=== PATIENT | female | born 1985 | race Hispanic/Latino ===

== ENCOUNTER 2023-01-31 12:48 | Emergency (ER) | payer OTHER ==
--- OUTSIDE RECORDS SUMMARY | 2023-01-31 12:56 | XMS REPORT | Continuity of Care Document ---
:1985 Author Organization [facility] t Address [address] [place] [address] Care Team Providers Name Role Phone PCP, PATIENT DOES NOT HAVE A Primary Care Physician Unavaila STARLA Guardado Attending Clinician Unavailable BOSTON PATRICIA Attending Clinician Unavailable RADHA Attending Clinician Unavailable JUANY FUENTES Attending Clinician Unavailable Juany Retana S Attending Clinician Doctor Unassigned, [place] Attending Clinician Unavailable Starla Hernandez MD Attending Clinician 2, [facility] Attending Clinician Unavailable Romina Morgan RN Attending Clinician Unavailable INES PENA Attending Clinician Unavailable Ines Pena MD Attending Clinician Unknown, Attending Attending Clinician Unavailable Chetan MANCIA Attending Clinician Unavailable Chetan Mensah Attending Clinician [place] Patricia MD Attending Clinician Madiha Bradshaw RN Attending Clinician Unavailable Monroe Molina CRNA Attending Clinician Abdelrahman Huang MD Attending Clinician Room, [facility] Attending Clinician Unavailable KELSY GARCIA Attending Clinician Unavailable Kelsy Garcia MD Attending Clinician PETER WILD Attending Clinician Unavailable Peter Wild PA-C Attending Clinician CORWIN NUÑEZ Attending Clinician Unavailable Ultrasound, [facility] Attending Clinician Unavailable Eden Wolfe MD Attending Clinician [phone] EDEN WOLFE Attending Clinician Unavailable Corwin Nuñez MD Attending Clinician Suni Kowalski MD Attending Clinician SUNI KOWALSKI Attending Clinician Unavailable BELINDA MOREAU Attending Clinician Unavailable Belinda Palmer Attending Clinician SRIDHAR RABAGO Attending Clinician Unavailable SRIDHAR RABAGO Attending Clinician Unavailable 5, [facility] Room Attending Clinician Unavailable Sridhar Rabago MD Attending Clinician Nurse, [facility] Attending Clinician Unavailable 2, [facility] Room Attending Clinician Unavailable Olvin Corral MD Attending Clinician [phone] OLVIN CORRAL Attending Clinician Unavailable 3, [facility] Room Attending Clinician Unavailable Pob, [facility] Lab Main Attending Clinician Unavailable José Miguel Tobias DO Attending Clinician [place] García Attending Clinician Dave Tobias MD Attending Clinician OMARI MYLES Attending Clinician Unavailable OMARI MYLES Attending Clinician Unavailable STARLA HERNANDEZ Admitting Clinician Unavailable BOSTON PATRICIA Admitting Clinician Unavailable SUNI KOWALSKI Admitting Clinician Unavailable DAVE TOBIAS Admitting Clinician Unavailable RADHA Admitting Clinician Unavailable Starla Hernandez MD Admitting Clinician Chetan MANICA Admitting Clinician Unavailable [place] Patricia MD Admitting Clinician KELSY GARCIA Admitting Clinician Unavailable Kelsy Garcia MD Admitting Clinician Suni Kowalski MD Admitting Clinician Anthony BONE, Dave Coronel Admitting Clinician Payers Payer Name Policy Type Policy Number Effective Date Expiration Date Madina jeffery [facility] [id number] 2019 00:00:00 UMR [id number] 2014 00:00:00 MEDICAID [facility] [id number] 2019 00:00:00 Problems Condition Condition Condition Status Onset Resolution Last Treating Co mments Source Name Details Category Date Date Treatment Clinician Date De De Disease Active 2021-06 Overview: Univer s Quervain's Quervain's 07-16 Formattin ity of tenosynovi tenosynovi 00:00: g of this [place] tis, left tis, left 00 note Medi evelyn might be Branch different from the original. 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 U nivers ou smear ou smear 0-19 ity of of cervix [place] 00 Medical atypical atypical Branch squamous squamous cells cells cannot cannot exclude exclude high grade high grade squamous squamous intraepith intraepith elial elial lesion lesion (ASC-H) (ASC-H) History of History of Disease Active U nivers anxiety anxiety 3-03 ity of 00:00: [place] 00 Medical Branch History of History of Disease Active 2019- U nivers depression depression 3-03 it y of 00:00: [place] 00 Medical Branch Mild Mild Disease Active Univers intermitte intermitte 3-03 it y of nt asthma nt asthma 00:[place] without without 00 Medical complicati complicati Br anch on on Obesity Obesity Disease Active 2018-06 Univers (BMI (BMI 1-06 ity of 30-39.9) 30-39.9) 00:00: [place] [id number] Medical [place] Allergies, Adverse Reactions, Alerts Allergy Allergy Status Severity Reaction(s) Onset Inactive Treating Comm ents Source Name Type Date Date Clinician NO KNOWN Drug Active Univers ALLERGIE Class ity of S [facility] Social History Social Habit Start Date Stop Date Quantity Comments Source History SDOH University o f [facility] [place] History SDOH University o f Alcohol Std [place] Medical Drinks Branch History [facility] University o f Alcohol Binge [facility] al Branch Exposure to 2022-12-13 2022-12-23 Not sure [facility]-CoV-2 00:00:00 13:11:00 [facility] (event) [place] Alcohol intake 2022-12-23 2022-12-23 Current drinker of Un iversity of 00:00:00 00:00:00 alcohol (finding) [facility] Tobacco use and 2022-01-24 2022-01-24 Smokeless tobacco Un iversity of exposure 00:00:00 00:00:00 non-user [facility] Alcohol Comment 2018-05-25 2018-05-25 Occasionally Univers ity of 00:00:00 00:00:00 [facility] Sex [birth year] Universit y of 00:00:00 00:00:00 [facility] Smoking Status Start Date Stop Date Source Never smoked tobacco [facility] Medications Ordered Filled Start Stop Current Ordering Indication Dosage Frequency Signature Comments Components Source Medication Medication Date Date Medication? Clinician (SIG) Name Name acetaminoph Yes 4647 1{tbl} Take 1 Un karen en-codeine 6-13 tablet by ity of (TYLENOL-CO 00:00: mouth [place] DEINE #3) 00 every 4 Medical 300-30 mg (four) Branch tablet hours as needed for Pain (scale 4-6) or Pain (scale 7-10). Indication s: acute pain acetaminoph Yes 4647 1{tbl} Take 1 Un karen en-codeine 6-13 tablet by ity of (TYLENOL-CO 00:00: mouth [place] DEINE #3) 00 every 4 Medical 300-30 mg (four) Branch tablet hours as needed for Pain (scale 4-6) or Pain (scale 7-10). Indication s: acute pain acetaminoph 2023-0 Yes 4647 1{tbl} Take 1 Un karen en-codeine 6-13 tablet by ity of (TYLENOL-CO 00:00: mouth [place] DEINE #3) 00 every 4 Medical 300-30 mg (four) Branch tablet hours as needed for Pain (scale 4-6) or Pain (scale 7-10). Indication s: acute pain acetaminoph 2023-0 Yes 4647 1{tbl} Take 1 Un karen en-codeine 6-13 tablet by ity of (TYLENOL-CO 00:00: mouth [place] DEINE #3) 00 every 4 Medical 300-30 mg (four) Branch tablet hours as needed for Pain (scale 4-6) or Pain (scale 7-10). Indication s: acute pain acetaminoph 2023-0 Yes 4647 1{tbl} Take 1 Un karen en-codeine 6-13 tablet by ity of (TYLENOL-CO 00:00: mouth [place] DEINE #3) 00 every 4 Medical 300-30 mg (four) Branch tablet hours as needed for Pain (scale 4-6) or Pain (scale 7-10). Indication s: acute pain acetaminoph 2023-0 Yes 4647 1{tbl} Take 1 Un karen en-codeine 6-13 tablet by ity of (TYLENOL-CO 00:00: mouth [place] DEINE #3) 00 every 4 Medical 300-30 mg (four) Branch tablet hours as needed for Pain (scale 4-6) or Pain (scale 7-10). Indication s: acute pain morpHINE (4 2022-0 Yes 2mg 2 mg, Slow Univers mg/mL) 6-12 IV Push, ity of injection 2 16:03: Q5MIN PRN, [place] mg 06 5 doses, Medical Starting Branch on Fri12/09/22 at 1103, Until Discontinu ed, Routine, Pain (scale 4-6), PACU ondansetron 2023-0 Yes 4mg 4 mg, Slow Univers (ZOFRAN 6-12 IV Push, ity of (PF)) 16:03: PRN, 1 [place] injection 4 06 dose, Medical mg Starting Branch on Fri12/09/22 at 1103, Until Discontinu ed, Routine, Nausea and Vomiting (N/V), PACU morpHINE (4 2022- No 2mg 2 mg, Slow Univers mg/mL) 12-09 IV Push, ity of injection 2 16:03: 19:40 Q5MIN PRN, [place] mg 06 :29 5 doses, Medical Starting Branch on Fri12/09/22 at 1103, Until Fri12/09/22 at 1440, Routine, Pain (scale 4-6), PACU ondansetron 2022- No 4mg 4 mg, Slow Univers (ZOFRAN 12-09 IV Push, ity of (PF)) 16:03: 19:40 PRN, 1 [place] injection 4 06 :29 dose, Medical mg Starting Branch on Fri12/09/22 at 1103, Until Fri12/09/22 at 1440, Routine, Nausea and Vomiting (N/V), PACU bupivacaine 2022-0 Yes PRN, Univer s (preserv 12-09 Starting ity of free) 15:49: on Fri [place] (SENSORCAIN 00 12/09/22 at Dc dical E F) 0.25 1049, Branch % (2.5 Until mg/mL) Discontinu injection ed, Routine, Intra-op bupivacaine 2022-2022- No PRN, Unive rs (preserv 12-09 Starting ity of free) 15:49: 19:40 on Fri [place] (SENSORCAIN 00 :29 12/09/22 at Dc dical E MP) 0.25 1049, Branch % (2.5 Until Mon mg/mL) 12/09/22 at injection 1440, Routine, Intra-op sodium 2022-0 Yes PRN, Univers chloride 12-09 Starting ity of 0.9 % 15:38: on Fri [place] irrigation 00 12/09/22 at [facility] ical solution 1038, Branch Until Discontinu ed, Intra-op sodium 2022-0 202- No PRN, Univers chloride 12-09 Starting ity of 0.9 % 15:38: 19:40 on [facility] irrigation 00 :29 12/09/22 at Med ical solution 1038, Branch Until Fri12/09/22 at 1440, Intra-op lactated 2022-2022- No 1000mL at 42 Unive rs ringers IV 12-09 06-12 mL/hr, ity of infusion 15:00: 14:50 1,000 mL, [place] 1,000 mL 00 :00 IV Medical Infusion, Branch ONCE, 1 dose, On Fri12/09/22 at 1000, Routine, DSU Pre-op lactated 2022-0 2022- No 1000mL at 42 Unive rs ringers IV 6 06-12 mL/hr, ity of infusion 15:00: 14:50 1,000 mL, [place] 1,000 mL 00 :00 IV Medical Infusion, Branch ONCE, 1 dose, On Fri12/09/22 at 1000, Routine, DSU Pre-op aspirin 325 2022- Yes [id number] 325mg Take 1 Univers mg tablet 12-09 [id number] tablet by it y of 00:00: 04:59 mouth in [place] 00 :00 [facility] and 1 tablet in the evening. Take with meals. Do all this for 28 days. aspirin 325 2022- Yes [id number] 325mg Take 1 Univers mg tablet 12-09 [id number] tablet by it y of 00:00: 04:59 mouth in [place] 00 :00 [facility] and 1 tablet in the evening. Take with meals. Do all this for 28 days. aspirin 325 2022- Yes [id number] 325mg Take 1 Univers mg tablet 12-09 [id number] tablet by it y of 00:00: 04:59 mouth in [place] 00 :00 [facility] and 1 tablet in the evening. Take with meals. Do all this for 28 days. aspirin 325 2022- Yes [id number] 325mg Take 1 Univers mg tablet 12-09 [id number] tablet by it y of 00:00: 04:59 mouth in [place] 00 :00 [facility] and 1 tablet in the evening. Take with meals. Do all this for 28 days. aspirin 325 2022- Yes [id number] 325mg Take 1 Univers mg tablet 12-09 [id number] tablet by it y of 00:00: 04:59 mouth in [place] 00 :00 the Medical morning Branch and 1 tablet in the evening. Take with meals. Do all this for 28 days. aspirin 325 2022- Yes [id number] 325mg Take 1 Univers mg tablet 12-09 [id number] tablet by it y of 00:00: 04:59 mouth in [place] 00 :00 the Medical morning Branch and 1 tablet in the evening. Take with meals. Do all this for 28 days. aspirin 325 2022- Yes [id number] 325mg Take 1 Univers mg tablet 12-09 [id number] tablet by it y of 00:00: 04:59 mouth in [place] 00 :00 the Medical morning Branch and 1 tablet in the evening. Take with meals. Do all this for 28 days. aspirin 325 2022- Yes [id number] 325mg Take 1 Univers mg tablet 12-09 [id number] tablet by it y of 00:: :59 mouth in [place] 00 :00 the Medical morning Branch and 1 tablet in the evening. Take with meals. Do all this for 28 days. aspirin 325 2022- Yes [id number] 325mg Take 1 Univers mg tablet 12-09 [id number] tablet by it y of 00:00: :59 mouth in [place] 00 :00 the Medical morning Branch and 1 tablet in the evening. Take with meals. Do all this for 28 days. traMADoL 50 2022- Yes [id number] 50mg Take 1 Uni vers mg tablet 12-09-20 tablet by ity of 00:: :59 mouth [place] 00 :00 every 6 Medical (six) Branch hours as needed for Pain (scale 4-6) or Pain (scale 7-10) for up to 7 days. Indication s: acute pain traMADoL 50 2022-0 2022- Yes [id number] 50mg Take 1 Uni vers mg tablet 12-09-20 tablet by ity of 00:00: 04:59 mouth [place] 00 :00 every 6 Medical (six) Branch hours as needed for Pain (scale 4-6) or Pain (scale 7-10) for up to 7 days. Indication s: acute pain traMADoL 50 2022-2022- Yes [id number] 50mg Take 1 Uni vers mg tablet 12-09-20 tablet by ity of 00:00: 04:59 mouth [place] 00 :00 every 6 Medical (six) Branch hours as needed for Pain (scale 4-6) or Pain (scale 7-10) for up to 7 days. Indication s: acute pain traMADoL 50 2022-0 2022- Yes [id number] 50mg Take 1 Uni vers mg tablet 6-12 06-20 tablet by ity of 00:00: 04:59 mouth [place] 00 :00 every 6 Medical (six) Branch hours as needed for Pain (scale 4-6) or Pain (scale 7-10) for up to 7 days. Indication s: acute pain traMADoL 50 2022-0 2022- Yes [id number] 50mg Take 1 Uni vers mg tablet 6-12 06-20 tablet by ity of 00:00: 04:59 mouth [place] 00 :00 every 6 Medical (six) Branch hours as needed for Pain (scale 4-6) or Pain (scale 7-10) for up to 7 days. Indication s: acute pain traMADoL 50 2022-0 2022- No [id number] 50mg Take 1 Uni vers mg tablet 6-12 06-20 tablet by ity of 00:00: 04:59 mouth [place] 00 :00 every 6 Medical (six) Branch hours as needed for Pain (scale 4-6) or Pain (scale 7-10) for up to 7 days. Indication s: acute pain benzonatate 2022-0 Yes [id number] 200mg Take 2 Univers 100 mg 2-21 capsules ity of capsule 00:00: by mouth [place] 00 every 8 Medical (eight) Branch hours as needed for Cough. guaiFENesin 2022-0 Yes [id number] 400mg Take 1 Univers 400 mg 2-21 tablet by ity of tablet 00:00: mouth [place] 00 every 4 Medical (four) Branch hours as needed for Cough. albuterol 2022-0 Yes [id number] 2{puff} Inhale 2 Univers 90 2-21 Puffs ity of mcg/actuati 00:00: every 6 [place] on inhaler 00 (six) Medical hours as Branch needed for Shortness of Breath or Wheezing. ondansetron 2022-0 Yes [id number] 4mg Take 1 Univers 4 mg 2-21 tablet by ity of disintegrat 00:00: mouth [place] ing tablet 00 every 8 Medica l (eight) Branch hours as needed for Nausea and Vomiting (N/V). benzonatate 2023-0 Yes [id number] 200mg Take 2 Univers 100 mg 2-21 capsules ity of capsule 00:00: by mouth [place] 00 every 8 Medical (eight) Branch hours as needed for Cough. guaiFENesin 2023-0 Yes [id number] 400mg Take 1 Univers 400 mg 2-21 tablet by ity of tablet 00:00: mouth [place] 00 every 4 Medical (four) Branch hours as needed for Cough. albuterol 2023-0 Yes [id number] 2{puff} Inhale 2 Univers 90 2-21 Puffs ity of mcg/actuati 00:00: every 6 [place] on inhaler 00 (six) Medical hours as Branch needed for Shortness of Breath or Wheezing. ondansetron 2023-0 Yes [id number] 4mg Take 1 Univers 4 mg 2-21 tablet by ity of disintegrat 00:00: mouth [place] ing tablet 00 every 8 Medica l (eight) Branch hours as needed for Nausea and Vomiting (N/V). benzonatate 2023-0 Yes [id number] 200mg Take 2 Univers 100 mg 2-21 capsules ity of capsule 00:00: by mouth [place] 00 every 8 Medical (eight) Branch hours as needed for Cough. guaiFENesin 2023-0 Yes [id number] 400mg Take 1 Univers 400 mg 2-21 tablet by ity of tablet 00:00: mouth [place] 00 every 4 Medical (four) Branch hours as needed for Cough. albuterol 2023-0 Yes [id number] 2{puff} Inhale 2 Univers 90 2-21 Puffs ity of mcg/actuati 00:00: every 6 [place] on inhaler 00 (six) Medical hours as Branch needed for Shortness of Breath or Wheezing. ondansetron 2023-0 Yes [id number] 4mg Take 1 Univers 4 mg 2-21 tablet by ity of disintegrat 00:00: mouth [place] ing tablet 00 every 8 Medica l (eight) Branch hours as needed for Nausea and Vomiting (N/V). benzonatate 2023-0 Yes [id number] 200mg Take 2 Univers 100 mg 2-21 capsules ity of capsule 00:00: by mouth [place] 00 every 8 Medical (eight) Branch hours as needed for Cough. guaiFENesin 2023-0 Yes [id number] 400mg Take 1 Univers 400 mg 2-21 tablet by ity of tablet 00:00: mouth [place] 00 every 4 Medical (four) Branch hours as needed for Cough. albuterol 2023-0 Yes [id number] 2{puff} Inhale 2 Univers 90 2-21 Puffs ity of mcg/actuati 00:00: every 6 [place] on inhaler 00 (six) Medical hours as Branch needed for Shortness of Breath or Wheezing. ondansetron 2023-0 Yes [id number] 4mg Take 1 Univers 4 mg 2-21 tablet by ity of disintegrat 00:00: mouth [place] ing tablet 00 every 8 Medica l (eight) Branch hours as needed for Nausea and Vomiting (N/V). benzonatate 2023-0 Yes [id number] 200mg Take 2 Univers 100 mg 2-21 capsules ity of capsule 00:00: by mouth [place] 00 every 8 Medical (eight) Branch hours as needed for Cough. guaiFENesin 2023-0 Yes [id number] 400mg Take 1 Univers 400 mg 2-21 tablet by ity of tablet 00:00: mouth [place] 00 every 4 Medical (four) Branch hours as needed for Cough. albuterol 2023-0 Yes [id number] 2{puff} Inhale 2 Univers 90 2-21 Puffs ity of mcg/actuati 00:00: every 6 [place] on inhaler 00 (six) Medical hours as Branch needed for Shortness of Breath or Wheezing. ondansetron 2023-0 Yes [id number] 4mg Take 1 Univers 4 mg 2-21 tablet by ity of disintegrat 00:00: mouth [place] ing tablet 00 every 8 Medica l (eight) Branch hours as needed for Nausea and Vomiting (N/V). benzonatate 2023-0 Yes [id number] 200mg Take 2 Univers 100 mg 2-21 capsules ity of capsule 00:00: by mouth [place] 00 every 8 Medical (eight) Branch hours as needed for Cough. guaiFENesin 2023-0 Yes [id number] 400mg Take 1 Univers 400 mg 2-21 tablet by ity of tablet 00:00: mouth [place] 00 every 4 Medical (four) Branch hours as needed for Cough. albuterol 2023-0 Yes [id number] 2{puff} Inhale 2 Univers 90 2-21 Puffs ity of mcg/actuati 00:00: every 6 [place] on inhaler 00 (six) Medical hours as Branch needed for Shortness of Breath or Wheezing. ondansetron 2023-0 Yes [id number] 4mg Take 1 Univers 4 mg 2-21 tablet by ity of disintegrat 00:00: mouth [place] ing tablet 00 every 8 Medica l (eight) Branch hours as needed for Nausea and Vomiting (N/V). benzonatate 2023-0 Yes [id number] 200mg Take 2 Univers 100 mg 2-21 capsules ity of capsule 00:00: by mouth [place] 00 every 8 Medical (eight) Branch hours as needed for Cough. guaiFENesin 2023-0 Yes [id number] 400mg Take 1 Univers 400 mg 2-21 tablet by ity of tablet 00:00: mouth [place] 00 every 4 Medical (four) Branch hours as needed for Cough. albuterol 2023-0 Yes [id number] 2{puff} Inhale 2 Univers 90 2-21 Puffs ity of mcg/actuati 00:00: every 6 [place] on inhaler 00 (six) Medical hours as Branch needed for Shortness of Breath or Wheezing. ondansetron 2023-0 Yes [id number] 4mg Take 1 Univers 4 mg 2-21 tablet by ity of disintegrat 00:00: mouth [place] ing tablet 00 every 8 Medica l (eight) Branch hours as needed for Nausea and Vomiting (N/V). benzonatate 2023-0 Yes [id number] 200mg Take 2 Univers 100 mg 2-21 capsules ity of capsule 00:00: by mouth [place] 00 every 8 Medical (eight) Branch hours as needed for Cough. guaiFENesin 2023-0 Yes [id number] 400mg Take 1 Univers 400 mg 2-21 tablet by ity of tablet 00:00: mouth [place] 00 every 4 Medical (four) Branch hours as needed for Cough. albuterol 2023-0 Yes [id number] 2{puff} Inhale 2 Univers 90 2-21 Puffs ity of mcg/actuati 00:00: every 6 [place] on inhaler 00 (six) Medical hours as Branch needed for Shortness of Breath or Wheezing. ondansetron 2023-0 Yes [id number] 4mg Take 1 Univers 4 mg 2-21 tablet by ity of disintegrat 00:00: mouth [place] ing tablet 00 every 8 Medica l (eight) Branch hours as needed for Nausea and Vomiting (N/V). benzonatate 2023-0 Yes [id number] 200mg Take 2 Univers 100 mg 2-21 capsules ity of capsule 00:00: by mouth [place] 00 every 8 Medical (eight) Branch hours as needed for Cough. guaiFENesin 2023-0 Yes [id number] 400mg Take 1 Univers 400 mg 2-21 tablet by ity of tablet 00:00: mouth [place] 00 every 4 Medical (four) Branch hours as needed for Cough. albuterol 2023-0 Yes [id number] 2{puff} Inhale 2 Univers 90 2-21 Puffs ity of mcg/actuati 00:00: every 6 [place] on inhaler 00 (six) Medical hours as Branch needed for Shortness of Breath or Wheezing. ondansetron 2023-0 Yes [id number] 4mg Take 1 Univers 4 mg 2-21 tablet by ity of disintegrat 00:00: mouth [place] ing tablet 00 every 8 Medica l (eight) Branch hours as needed for Nausea and Vomiting (N/V). benzonatate 2023-0 Yes [id number] 200mg Take 2 Univers 100 mg 2-21 capsules ity of capsule 00:00: by mouth [place] 00 every 8 Medical (eight) Branch hours as needed for Cough. guaiFENesin 2023-0 Yes [id number] 400mg Take 1 Univers 400 mg 2-21 tablet by ity of tablet 00:00: mouth [place] 00 every 4 Medical (four) Branch hours as needed for Cough. albuterol 2023-0 Yes [id number] 2{puff} Inhale 2 Univers 90 2-21 Puffs ity of mcg/actuati 00:00: every 6 [place] on inhaler 00 (six) Medical hours as Branch needed for Shortness of Breath or Wheezing. ondansetron 2023-0 Yes [id number] 4mg Take 1 Univers 4 mg 2-21 tablet by ity of disintegrat 00:00: mouth [place] ing tablet 00 every 8 Medica l (eight) Branch hours as needed for Nausea and Vomiting (N/V). benzonatate 2023-0 Yes [id number] 200mg Take 2 Univers 100 mg 2-21 capsules ity of capsule 00:00: by mouth [place] 00 every 8 Medical (eight) Branch hours as needed for Cough. guaiFENesin 2023-0 Yes [id number] 400mg Take 1 Univers 400 mg 2-21 tablet by ity of tablet 00:00: mouth [place] 00 every 4 Medical (four) Branch hours as needed for Cough. albuterol 2023-0 Yes [id number] 2{puff} Inhale 2 Univers 90 2-21 Puffs ity of mcg/actuati 00:00: every 6 [place] as on inhaler 00 (six) Medical hours as Branch needed for Shortness of Breath or Wheezing. ondansetron 2023-0 Yes [id number] 4mg Take 1 Univers 4 mg 2-21 tablet by ity of disintegrat 00:00: mouth [place] ing tablet 00 every 8 Medica l (eight) Branch hours as needed for Nausea and Vomiting (N/V). benzonatate 2023-0 Yes [id number] 200mg Take 2 Univers 100 mg 2-21 capsules ity of capsule 00:00: by mouth [place] 00 every 8 Medical (eight) Branch hours as needed for Cough. guaiFENesin 2023-0 Yes [id number] 400mg Take 1 Univers 400 mg 2-21 tablet by ity of tablet 00:00: mouth [place] 00 every 4 Medical (four) Branch hours as needed for Cough. albuterol 2023-0 Yes [id number] 2{puff} Inhale 2 Univers 90 2-21 Puffs ity of mcg/actuati 00:00: every 6 [place] as on inhaler 00 (six) Medical hours as Branch needed for Shortness of Breath or Wheezing. ondansetron 2023-0 Yes [id number] 4mg Take 1 Univers 4 mg 2-21 tablet by ity of disintegrat 00:00: mouth [place] ing tablet 00 every 8 Medica l (eight) Branch hours as needed for Nausea and Vomiting (N/V). benzonatate 2023-0 Yes [id number] 200mg Take 2 Univers 100 mg 2-21 capsules ity of capsule 00:00: by mouth [place] 00 every 8 Medical (eight) Branch hours as needed for Cough. guaiFENesin 2023-0 Yes [id number] 400mg Take 1 Univers 400 mg 2-21 tablet by ity of tablet 00:00: mouth [place] 00 every 4 Medical (four) Branch hours as needed for Cough. albuterol 2023-0 Yes [id number] 2{puff} Inhale 2 Univers 90 2-21 Puffs ity of mcg/actuati 00:00: every 6 [place] as on inhaler 00 (six) Medical hours as Branch needed for Shortness of Breath or Wheezing. ondansetron 2023-0 Yes [id number] 4mg Take 1 Univers 4 mg 2-21 tablet by ity of disintegrat 00:00: mouth [place] ing tablet 00 every 8 Medica l (eight) Branch hours as needed for Nausea and Vomiting (N/V). benzonatate 2023-0 Yes [id number] 200mg Take 2 Univers 100 mg 2-21 capsules ity of capsule 00:00: by mouth [place] 00 every 8 Medical (eight) Branch hours as needed for Cough. guaiFENesin 2023-0 Yes [id number] 400mg Take 1 Univers 400 mg 2-21 tablet by ity of tablet 00:00: mouth [place] 00 every 4 Medical (four) Branch hours as needed for Cough. albuterol 2023-0 Yes [id number] 2{puff} Inhale 2 [facility] 90 2-21 Puffs ity of mcg/actuati 00:00: every 6 [place] as on inhaler 00 (six) Medical hours as Branch needed for Shortness of Breath or Wheezing. ondansetron 2023-0 Yes [id number] 4mg Take 1 [facility] 4 mg 2-21 tablet by ity of disintegrat 00:00: mouth [place] ing tablet 00 every 8 Medica l (eight) Branch hours as needed for Nausea and Vomiting (N/V). benzonatate 2023-0 Yes [id number] 200mg Take 2 [facility] 100 mg 2-21 capsules ity of capsule 00:00: by mouth [place] 00 every 8 Medical (eight) Branch hours as needed for Cough. guaiFENesin 2023-0 Yes [id number] 400mg Take 1 [facility] 400 mg 2-21 tablet by ity of tablet 00:00: mouth [place] 00 every 4 Medical (four) Branch hours as needed for Cough. albuterol 2023-0 Yes [id number] 2{puff} Inhale 2 [facility] 90 2-21 Puffs ity of mcg/actuati 00:00: every 6 [place] as on inhaler 00 (six) Medical hours as Branch needed for Shortness of Breath or Wheezing. ondansetron 2023-0 Yes [id number] 4mg Take 1 [facility] 4 mg 2-21 tablet by ity of disintegrat 00:00: mouth [place] ing tablet 00 every 8 Medica l (eight) Branch hours as needed for Nausea and Vomiting (N/V). benzonatate 2023-0 Yes [id number] 200mg Take 2 [facility] 100 mg 2-21 capsules ity of capsule 00:00: by mouth [place] 00 every 8 Medical (eight) Branch hours as needed for Cough. guaiFENesin 2023-0 Yes [id number] 400mg Take 1 [facility] 400 mg 2-21 tablet by ity of tablet 00:00: mouth [place] 00 every 4 Medical (four) Branch hours as needed for Cough. albuterol 2023-0 Yes [id number] 2{puff} Inhale 2 [facility] 90 2-21 Puffs ity of mcg/actuati 00:00: every 6 [place] as on inhaler 00 (six) Medical hours as Branch needed for Shortness of Breath or Wheezing. ondansetron 2023-0 Yes [id number] 4mg Take 1 [facility] 4 mg 2-21 tablet by ity of disintegrat 00:00: mouth [place] ing tablet 00 every 8 Medica l (eight) Branch hours as needed for Nausea and Vomiting (N/V). benzonatate 2023-0 Yes [id number] 200mg Take 2 [facility] 100 mg 2-21 capsules ity of capsule 00:00: by mouth [place] 00 every 8 Medical (eight) Branch hours as needed for Cough. guaiFENesin 2023-0 Yes [id number] 400mg Take 1 [facility] 400 mg 2-21 tablet by ity of tablet 00:00: mouth [place] 00 every 4 Medical (four) Branch hours as needed for Cough. albuterol 2023-0 Yes [id number] 2{puff} Inhale 2 [facility] 90 2-21 Puffs ity of mcg/actuati 00:00: every 6 [place] as on inhaler 00 (six) Medical hours as Branch needed for Shortness of Breath or Wheezing. ondansetron 2023-0 Yes [id number] 4mg Take 1 [facility] 4 mg 2-21 tablet by ity of disintegrat 00:00: mouth [place] ing tablet 00 every 8 Medica l (eight) Branch hours as needed for Nausea and Vomiting (N/V). benzonatate 2023-0 Yes [id number] 200mg Take 2 [facility] 100 mg 2-21 capsules ity of capsule 00:00: by mouth [place] 00 every 8 Medical (eight) Branch hours as needed for Cough. guaiFENesin 0 Yes [id number] 400mg Take 1 [facility] 400 mg 2-21 tablet by ity of tablet 00:00: mouth [place] 00 every 4 Medical (four) Branch hours as needed for Cough. albuterol 0 Yes [id number] 2{puff} Inhale 2 [facility] 90 2-21 Puffs ity of mcg/actuati 00:00: every 6 [place] as on inhaler 00 (six) Medical hours as Branch needed for Shortness of Breath or Wheezing. ondansetron Yes [id number] 4mg Take 1 [facility] 4 mg 2-21 tablet by ity of disintegrat 00:00: mouth [place] ing tablet 00 every 8 Medica l (eight) Branch hours as needed for Nausea and Vomiting (N/V). methylPREDN 2021-0 Yes [id number] 84mg Take 21 [facility] ISolone 9-30 [id number] tablets by ity of (MEDROL, 00:00: mouth [place] K[facility],) 4 mg 00 SEE-INSTRU Med ical tablets CTIONS. Branch follow package directions methylPREDN 2021-0 Yes [id number] 84mg Take 21 [facility] ISolone 9-30 [id number] tablets by ity of (MEDROL, 00:00: mouth [place] [facility]AS[facility],) 4 mg 00 SEE-INSTRU Med ical tablets CTIONS. Branch follow package directions methylPREDN 2021-0 Yes [id number] 84mg Take 21 [facility] ISolone 9-30 [id number] tablets by ity of (MEDROL, 00:00: mouth [place] [facility],) 4 mg 00 SEE-INSTRU Med ical tablets CTIONS. Branch follow package directions methylPREDN 2021-0 Yes [id number] 84mg Take 21 [facility] ISolone 9-30 [id number] tablets by ity of (MEDROL, 00:00: mouth [place] [facility],) 4 mg 00 SEE-INSTRU Med ical tablets CTIONS. Branch follow package directions methylPREDN 2021-0 Yes [id number] 84mg Take 21 [facility] ISolone 9-30 [id number] tablets by ity of (MEDROL, 00:00: mouth [place] [facility],) 4 mg 00 SEE-INSTRU Med ical tablets CTIONS. Branch follow package directions methylPREDN 2021-0 Yes [id number] 84mg Take 21 [facility] ISolone 9-30 [id number] tablets by ity of (MEDROL, 00:00: mouth [place] [facility],) 4 mg 00 SEE-INSTRU Med ical tablets CTIONS. Branch follow package directions methylPREDN 2022-0 Yes [id number] 84mg Take 21 [facility] ISolone 9-30 [id number] tablets by ity of (MEDROL, 00:00: mouth [place] [facility],) 4 mg 00 SEE-INSTRU Med ical tablets CTIONS. Branch follow package directions methylPREDN 2022-0 Yes [id number] 84mg Take 21 [facility] ISolone 9-30 [id number] tablets by ity of (MEDROL, 00:00: mouth [place] [facility],) 4 mg 00 SEE-INSTRU Med ical tablets CTIONS. Branch follow package directions methylPREDN 2022-0 Yes [id number] 84mg Take 21 [facility] ISolone 9-30 [id number] tablets by ity of (MEDROL, 00:00: mouth [place] [facility],) 4 mg 00 SEE-INSTRU Med ical tablets CTIONS. Branch follow package directions methylPREDN 2-0 Yes [id number] 84mg Take 21 [facility] ISolone 9-30 [id number] tablets by ity of (MEDROL, 00:00: mouth [place] [facility],) 4 mg 00 SEE-INSTRU Med ical tablets CTIONS. Branch follow package directions methylPREDN 2-0 Yes [id number] 84mg Take 21 [facility] ISolone 9-30 [id number] tablets by ity of (MEDROL, 00:00: mouth [place] [facility],) 4 mg 00 SEE-INSTRU Med ical tablets CTIONS. Branch follow package directions methylPREDN 2022-0 Yes [id number] 84mg Take 21 [facility] ISolone 9-30 [id number] tablets by ity of (MEDROL, 00:00: mouth [place] [facility],) 4 mg 00 SEE-INSTRU Med ical tablets CTIONS. Branch follow package directions methylPREDN 2022-0 Yes [id number] 84mg Take 21 [facility] ISolone 9-30 [id number] tablets by ity of (MEDROL, 00:00: mouth [place] [facility],) 4 mg 00 SEE-INSTRU Med ical tablets CTIONS. Branch follow package directions methylPREDN 2022-0 Yes [id number] 84mg Take 21 [facility] ISolone 9-30 [id number] tablets by ity of (MEDROL, 00:00: mouth [place] [facility],) 4 mg 00 SEE-INSTRU Med ical tablets CTIONS. Branch follow package directions methylPREDN 2-0 Yes [id number] 84mg Take 21 [facility] ISolone 9-30 [id number] tablets by ity of (MEDROL, 00:00: mouth [place] [facility],) 4 mg 00 SEE-INSTRU Med ical tablets CTIONS. Branch follow package directions methylPREDN 2-0 Yes [id number] 84mg Take 21 [facility] ISolone 9-30 [id number] tablets by ity of (MEDROL, 00:00: mouth [place] [facility],) 4 mg 00 SEE-INSTRU Med ical tablets CTIONS. Branch follow package directions methylPREDN 2-0 Yes [id number] 84mg Take 21 [facility] ISolone 9-30 [id number] tablets by ity of (MEDROL, 00:00: mouth [place] [facility],) 4 mg 00 SEE-INSTRU Med ical tablets CTIONS. Branch follow package directions methylPREDN 2-0 Yes [id number] 84mg Take 21 [facility] ISolone 9-30 [id number] tablets by ity of (MEDROL, 00:00: mouth [place] [facility],) 4 mg 00 SEE-INSTRU Med ical tablets CTIONS. Branch follow package directions methylPREDN 2-0 Yes [id number] 84mg Take 21 [facility] ISolone 9-30 [id number] tablets by ity of (MEDROL, 00:00: mouth [place] [facility],) 4 mg 00 SEE-INSTRU Med ical tablets CTIONS. Branch follow package directions methylPREDN 2-0 Yes [id number] 84mg Take 21 [facility] ISolone 9-30 [id number] tablets by ity of (MEDROL, 00:00: mouth [place] [facility],) 4 mg 00 SEE-INSTRU Med ical tablets CTIONS. Branch follow package directions methylPREDN 2-0 2023- No [id number] 84mg Take 21 [facility] ISolone 9-30 06-12 [id number] tablets by ity of (MEDROL, 00:00: 00:00 mouth [place] [facility],) 4 mg 00 :00 SEE-INSTRU Med ical tablets CTIONS. Branch follow package directions methylPREDN 2022-0 2023- No [id number] 84mg Take 21 [facility] ISolone 9-30 06-12 [id number] tablets by ity of (MEDROL, 00:00: 00:00 mouth [place] [facility],) 4 mg 00 :00 SEE-INSTRU Med ical tablets CTIONS. Branch follow package directions busPIRone 0 Yes [id number] 10mg Take 1 [facility] nivers 10 mg 9-12 tablet by ity of tablet 00:00: mouth in [place] 00 the Medical morning Branch and 1 tablet in the evening. SERTraline 0 Yes [id number] 50mg Take 1 U nivers (ZOLOFT) 50 9-12 tablet by ity of mg tablet 00:00: mouth [place] 00 the Medical morning. Branch doxylamine Yes [id number] 25mg Take 1 U nivers (UNISOM, 9-12 tablet by ity of DOXYLAMINE, 00:00: mouth at [place] 25 mg 00 bedtime as Medica l tablet needed for Branch Insomnia. busPIRone Yes [id number] 10mg Take 1 U nivers 10 mg 9-12 tablet by ity of tablet 00:00: mouth in [place] the Medical morning Branch and 1 tablet in the evening. SERTraline Yes [id number] 50mg Take 1 U nivers (ZOLO[place]) 50 9-12 tablet by ity of mg tablet 00:00: mouth in [place] 00 the Medical morning. Branch doxylamine Yes [id number] 25mg Take 1 U nivers (UNISOM, 9-12 tablet by ity of DOXYLAMINE, 00:00: mouth at [place] 25 mg 00 bedtime as Medica l tablet needed for Branch Insomnia. busPIRone 0 Yes [id number] 10mg Take 1 [facility] nivers 10 mg 9-12 tablet by ity of tablet 00:00: mouth in [place] [address] the Medical morning Branch and 1 tablet in the evening. SERTraline Yes [id number] 50mg Take 1 U nivers (ZOLOFT) 50 9-12 tablet by it[facility] of mg tablet 00:00: mouth [place] 00 the Medical morning. Branch doxylamine Yes [id number] 25mg Take 1 U nivers (UNISOM, 9-12 tablet by ity of DOXYLAMINE, 00:00: mouth at [place] ) 25 mg 00 bedtime as Medica l tablet needed for Branch Insomnia. ibuprofen Yes [id number] 600mg Take 1 [facility] 600 mg 9-12 [id number] tablet by ity of tablet 00:00: mouth [place] 00 every 6 Medical (six) Branch hours as needed for Pain (scale 4-6). busPIRone 2021-0 Yes [id number] 10mg Take 1 U nivers 10 mg 9-12 tablet by ity of tablet 00:00: mouth in [place] 00 the Medical morning Branch and 1 tablet in the evening. SERTraline 2021-0 Yes [id number] 50mg Take 1 U nivers (ZOLOFT) 50 9-12 tablet by ity of mg tablet 00:00: [facility] [place] the [facility] morning. Branch doxylamine 2021-0 Yes [id number] 25mg Take 1 U nivers (UNISOM, 9-12 tablet by ity of DOXYLAMINE, 00:00: mouth [place] 25 mg 00 bedtime as Medica l tablet needed for Branch Insomnia. ibuprofen 2021-0 Yes [id number] 600mg Take 1 [facility] 600 mg 9-12 [id number] tablet by ity of tablet 00:00: mouth [place] 00 every 6 Medical (six) Branch hours as needed for Pain (scale 4-6). busPIRone 2021-0 Yes [id number] 10mg Take 1 U nivers 10 mg 9-12 tablet by ity of tablet 00:00: mouth in [place] 00 the Medical morning Branch and 1 tablet in the evening. SERTraline 2021-0 Yes [id number] 50mg Take 1 U nivers (ZOLOFT) 50 9-12 tablet by ity of mg tablet 00:00: mouth in [facility] 00 the Medical morning. Branch doxylamine 2021-0 Yes [id number] 25mg Take 1 U nivers (UNISOM, 9-12 tablet by ity of DOXYLAMINE, 00:00: mouth at [place] ) 25 mg 00 bedtime as Medica l tablet needed for Branch Insomnia. ibuprofen 2021-0 Yes [id number] 600mg Take 1 [facility] 600 mg 9-12 [id number] tablet by ity of tablet 00:00: mouth [place] 00 every 6 Medical (six) Branch hours as needed for Pain (scale 4-6). busPIRone 2021-0 Yes [id number] 10mg Take 1 U nivers 10 mg 9-12 tablet by ity of tablet 00:00: mouth in [place] 00 the Medical morning Branch and 1 tablet in the evening. SERTraline 2021-0 Yes [id number] 50mg Take 1 U nivers (ZOLOFT) 50 9-12 tablet by ity of mg tablet 00:00: mouth [place] 00 the Medical morning. Branch doxylamine 2021-0 Yes [id number] 25mg Take 1 U nivers (UNISOM, 9-12 tablet by ity of DOXYLAMINE, 00:00: mouth at [place] ) 25 mg 00 bedtime as Medica l tablet needed for Branch Insomnia. ibuprofen 2021-0 Yes [id number] 600mg Take 1 [facility] 600 mg 9-12 [id number] tablet by ity of tablet 00:00: mouth [place] 00 every 6 Medical (six) Branch hours as needed for Pain (scale 4-6). busPIRone 2021-0 Yes [id number] 10mg Take 1 U nivers 10 mg 9-12 tablet by ity of tablet 00:00: mouth in [place] 00 the Medical morning Branch and 1 tablet in the evening. SERTraline 2021-0 Yes [id number] 50mg Take 1 U nivers (ZOLOFT) 50 9-12 tablet by ity of mg tablet 00:00: mouth in [place] 00 the Medical morning. Branch doxylamine 2021-0 Yes [id number] 25mg Take 1 U nivers (UNISOM, 9-12 tablet by ity of DOXYLAMINE, 00:00: mouth at [place] ) 25 mg 00 bedtime as Medica l tablet needed for Branch Insomnia. ibuprofen 2021-0 Yes [id number] 600mg Take 1 [facility] 600 mg 9-12 [id number] tablet by ity of tablet 00:00: mouth [place] 00 every 6 Medical (six) Branch hours as needed for Pain (scale 4-6). busPIRone 2021-0 Yes [id number] 10mg Take 1 U nivers 10 mg 9-12 tablet by ity of tablet 00:00: mouth in [place] 00 the Medical morning Branch and 1 tablet in the evening. SERTraline 2021-0 Yes [id number] 50mg Take 1 U nivers (ZOLOFT) 50 9-12 tablet by ity of mg tablet 00:00: mouth [place] 00 the Medical morning. Branch doxylamine 2021-0 Yes [id number] 25mg Take 1 U nivers (UNISOM, 9-12 tablet by ity of DOXYLAMINE, 00:00: mouth at [place] ) 25 mg 00 bedtime as Medica l tablet needed for Branch Insomnia. ibuprofen 2021-0 Yes [id number] 600mg Take 1 [facility] 600 mg 9-12 [id number] tablet by ity of tablet 00:00: mouth [place] 00 every 6 Medical (six) Branch hours as needed for Pain (scale 4-6). busPIRone 2021-0 Yes [id number] 10mg Take 1 U nivers 10 mg 9-12 tablet by ity of tablet 00:00: mouth in [place] the Medical morning Branch and 1 tablet in the evening. SERTraline 2021-0 Yes [id number] 50mg Take 1 U nivers (ZOLOFT) 50 9-12 tablet by ity of mg tablet 00:00: mouth in [facility] the Medical morning. Branch doxylamine 2021-0 Yes [id number] 25mg Take 1 U nivers (UNISOM, 9-12 tablet by ity of DOXYLAMINE, 00:00: mouth [place] 25 mg 00 bedtime as Medica l tablet needed for Branch Insomnia. ibuprofen 2021-0 Yes [id number] 600mg Take 1 [facility] 600 mg 9-12 [id number] tablet by ity of tablet 00:00: mouth [place] 00 every 6 Medical (six) Branch hours as needed for Pain (scale 4-6). busPIRone 2021-0 Yes [id number] 10mg Take 1 U nivers 10 mg 9-12 tablet by ity of tablet 00:00: mouth in [place] the Medical morning Branch and 1 tablet in the evening. SERTraline 2021-0 Yes [id number] 50mg Take 1 U nivers (ZOLOFT) 50 9-12 tablet by ity of mg tablet 00:00: mouth [facility] [place] the Medical morning. Branch doxylamine 2021-0 Yes [id number] 25mg Take 1 U nivers (UNISOM, 9-12 tablet by ity of DOXYLAMINE, 00:00: mouth [place] ) 25 mg 00 bedtime as Medica l tablet needed for Branch Insomnia. ibuprofen 2021-0 Yes [id number] 600mg Take 1 [facility] 600 mg 9-12 [id number] tablet by ity of tablet 00:00: mouth [place] 00 every 6 Medical (six) Branch hours as needed for Pain (scale 4-6). busPIRone 2021-0 Yes [id number] 10mg Take 1 U nivers 10 mg 9-12 tablet by ity of tablet 00:00: mouth in [place] 00 the Medical morning Branch and 1 tablet in the evening. SERTraline 2021-0 Yes [id number] 50mg Take 1 U nivers (ZOLOFT) 50 9-12 tablet by ity of mg tablet 00:00: [facility] [place] [place] [facility] the Medical morning. Branch doxylamine 2021-0 Yes [id number] 25mg Take 1 U nivers (UNISOM, 9-12 tablet by ity of DOXYLAMINE, 00:00: mouth [place] 25 mg 00 bedtime as Medica l tablet needed for Branch Insomnia. ibuprofen 2021-0 Yes [id number] 600mg Take 1 [facility] 600 mg 9-12 [id number] tablet by ity of tablet 00:00: mouth [place] 00 every 6 Medical (six) Branch hours as needed for Pain (scale 4-6). busPIRone 2021-0 Yes [id number] 10mg Take 1 U nivers 10 mg 9-12 tablet by ity of tablet 00:00: mouth in [place] 00 the Medical morning Branch and 1 tablet in the evening. SERTraline 2021-0 Yes [id number] 50mg Take 1 U nivers (ZOLOFT) 50 9-12 tablet by ity of mg tablet 00:00: mouth in [facility] 00 the Medical morning. Branch doxylamine 2021-0 Yes [id number] 25mg Take 1 U nivers (UNISOM, 9-12 tablet by ity of DOXYLAMINE, 00:00: mouth at [place] ) 25 mg 00 bedtime as Medica l tablet needed for Branch Insomnia. ibuprofen 2021-0 Yes [id number] 600mg Take 1 [facility] 600 mg 9-12 [id number] tablet by ity of tablet 00:00: mouth [place] 00 every 6 Medical (six) Branch hours as needed for Pain (scale 4-6). busPIRone 2021-0 Yes [id number] 10mg Take 1 U nivers 10 mg 9-12 tablet by ity of tablet 00:00: mouth in [place] 00 the Medical morning Branch and 1 tablet in the evening. SERTraline 2021-0 Yes [id number] 50mg Take 1 U nivers (ZOLOFT) 50 9-12 tablet by ity of mg tablet 00:00: mouth in [place] the Medical morning. Branch doxylamine 2021-0 Yes [id number] 25mg Take 1 U nivers (UNISOM, 9-12 tablet by ity of DOXYLAMINE, 00:00: mouth [place] ) 25 mg 00 bedtime as Medica l tablet needed for Branch Insomnia. ibuprofen 2021-0 Yes [id number] 600mg Take 1 [facility] 600 mg 9-12 [id number] tablet by ity of tablet 00:00: mouth [place] 00 every 6 Medical (six) Branch hours as needed for Pain (scale 4-6). busPIRone 2021-0 Yes [id number] 10mg Take 1 U nivers 10 mg 9-12 tablet by ity of tablet 00:00: mouth in [place] the Medical morning Branch and 1 tablet in the evening. SERTraline 2021-0 Yes [id number] 50mg Take 1 U nivers (ZOLOFT) 50 9-12 tablet by ity of mg tablet 00:00: mouth in [facility] the Medical morning. Branch doxylamine 2021-0 Yes [id number] 25mg Take 1 U nivers (UNISOM, 9-12 tablet by ity of DOXYLAMINE, 00:00: mouth [place] 25 mg 00 bedtime as Medica l tablet needed for Branch Insomnia. ibuprofen 2021-0 Yes [id number] 600mg Take 1 [facility] 600 mg 9-12 [id number] tablet by ity of tablet 00:00: mouth [place] 00 every 6 Medical (six) Branch hours as needed for Pain (scale 4-6). busPIRone 2021-0 Yes [id number] 10mg Take 1 U nivers 10 mg 9-12 tablet by ity of tablet 00:00: mouth in [place] 00 the Medical morning Branch and 1 tablet in the evening. SERTraline 2021-0 Yes [id number] 50mg Take 1 U nivers (ZOLOFT) 50 9-12 tablet by ity of mg tablet 00:00: mouth in [place] 00 the Medical morning. Branch doxylamine 2021-0 Yes [id number] 25mg Take 1 U nivers (UNISOM, 9-12 tablet by ity of DOXYLAMINE, 00:00: mouth [place] ) 25 mg 00 bedtime as Medica l tablet needed for Branch Insomnia. ibuprofen 2021-0 Yes [id number] 600mg Take 1 [facility] 600 mg 9-12 [id number] tablet by ity of tablet 00:00: mouth [place] 00 every 6 Medical (six) Branch hours as needed for Pain (scale 4-6). busPIRone 2021-0 Yes [id number] 10mg Take 1 U nivers 10 mg 9-12 tablet by ity of tablet 00:00: mouth in [place] 00 the Medical morning Branch and 1 tablet in the evening. SERTraline 2021-0 Yes [id number] 50mg Take 1 U nivers (ZOLOFT) 50 9-12 tablet by ity of mg tablet 00:00: mouth [facility] [place] the Medical morning. Branch doxylamine 2021-0 Yes [id number] 25mg Take 1 U nivers (UNISOM, 9-12 tablet by ity of DOXYLAMINE, 00:00: mouth [place] 25 mg 00 bedtime as Medica l tablet needed for Branch Insomnia. ibuprofen 2021-0 Yes [id number] 600mg Take 1 [facility] 600 mg 9-12 [id number] tablet by ity of tablet 00:00: mouth [place] 00 every 6 Medical (six) Branch hours as needed for Pain (scale 4-6). busPIRone 2021-0 Yes [id number] 10mg Take 1 U nivers 10 mg 9-12 tablet by ity of tablet 00:00: mouth in [place] the Medical morning Branch and 1 tablet in the evening. SERTraline 2021-0 Yes [id number] 50mg Take 1 U nivers (ZOLOFT) 50 9-12 tablet by ity of mg tablet 00:00: mouth in [place] 00 the Medical morning. Branch doxylamine 2021-0 Yes [id number] 25mg Take 1 U nivers (UNISOM, 9-12 tablet by ity of DOXYLAMINE, 00:00: mouth [place] 25 mg 00 bedtime as Medica l tablet needed for Branch Insomnia. ibuprofen 2021-0 Yes [id number] 600mg Take 1 [facility] 600 mg 9-12 [id number] tablet by ity of tablet 00:00: mouth [place] 00 every 6 Medical (six) Branch hours as needed for Pain (scale 4-6). busPIRone 2021-0 Yes [id number] 10mg Take 1 U nivers 10 mg 9-12 tablet by ity of tablet 00:00: mouth in [place] 00 the Medical morning Branch and 1 tablet in the evening. SERTraline 2021-0 Yes [id number] 50mg Take 1 U nivers (ZOLOFT) 50 9-12 tablet by ity of mg tablet 00:00: [facility] [place] [place] [facility] the Medical morning. Branch doxylamine 2021-0 Yes [id number] 25mg Take 1 U nivers (UNISOM, 9-12 tablet by ity of DOXYLAMINE, 00:00: mouth [place] 25 mg 00 bedtime as Medica l tablet needed for Branch Insomnia. ibuprofen 2021-0 Yes [id number] 600mg Take 1 [facility] 600 mg 9-12 [id number] tablet by ity of tablet 00:00: mouth [place] 00 every 6 Medical (six) Branch hours as needed for Pain (scale 4-6). busPIRone 2021-0 Yes [id number] 10mg Take 1 U nivers 10 mg 9-12 tablet by ity of tablet 00:00: mouth in [place] 00 the Medical morning Branch and 1 tablet in the evening. SERTraline 2021-0 Yes [id number] 50mg Take 1 U nivers (ZOLOFT) 50 9-12 tablet by ity of mg tablet 00:00: mouth in [facility] 00 the Medical morning. Branch doxylamine 2021-0 Yes [id number] 25mg Take 1 U nivers (UNISOM, 9-12 tablet by ity of DOXYLAMINE, 00:00: mouth [place] 25 mg 00 bedtime as Medica l tablet needed for Branch Insomnia. ibuprofen 2021-0 Yes [id number] 600mg Take 1 [facility] 600 mg 9-12 [id number] tablet by ity of tablet 00:00: mouth [place] 00 every 6 Medical (six) Branch hours as needed for Pain (scale 4-6). busPIRone 2021-0 Yes [id number] 10mg Take 1 U nivers 10 mg 9-12 tablet by ity of tablet 00:00: mouth in [place] 00 the Medical morning Branch and 1 tablet in the evening. SERTraline 202-0 Yes [id number] 50mg Take 1 U nivers (ZOLOFT) 50 9-12 tablet by ity of mg tablet 00:00: mouth [facility] [place] 00 the Medical morning. Branch doxylamine 2021-0 Yes [id number] 25mg Take 1 U nivers (UNISOM, 9-12 tablet by ity of DOXYLAMINE, 00:00: mouth [place] 25 mg 00 bedtime as Medica l tablet needed for Branch Insomnia. ibuprofen 2021-0 Yes [id number] 600mg Take 1 [facility] 600 mg 9-12 [id number] tablet by ity of tablet 00:00: mouth [place] 00 every 6 Medical (six) Branch hours as needed for Pain (scale 4-6). busPIRone 2021-0 Yes [id number] 10mg Take 1 U nivers 10 mg 9-12 tablet by ity of tablet 00:00: mouth in [place] the Medical morning Branch and 1 tablet in the evening. SERTraline 2021-0 Yes [id number] 50mg Take 1 U nivers (ZOLOFT) 50 9-12 tablet by ity of mg tablet 00:00: mouth in [facility] the Medical morning. Branch doxylamine 2021-0 Yes [id number] 25mg Take 1 U nivers (UNISOM, 9-12 tablet by ity of DOXYLAMINE, 00:00: mouth [place] 25 mg 00 bedtime as Medica l tablet needed for Branch Insomnia. ibuprofen 2021-0 Yes [id number] 600mg Take 1 [facility] 600 mg 9-12 [id number] tablet by ity of tablet 00:00: mouth [place] 00 every 6 Medical (six) Branch hours as needed for Pain (scale 4-6). busPIRone 2021-0 Yes [id number] 10mg Take 1 U nivers 10 mg 9-12 tablet by ity of tablet 00:00: mouth in [place] 00 the Medical morning Branch and 1 tablet in the evening. SERTraline 2021-0 Yes [id number] 50mg Take 1 U nivers (ZOLOFT) 50 9-12 tablet by ity of mg tablet 00:00: mouth in [facility] 00 the Medical morning. Branch doxylamine 2021-0 Yes [id number] 25mg Take 1 U nivers (UNISOM, 9-12 tablet by ity of DOXYLAMINE, 00:00: mouth [place] 25 mg 00 bedtime as Medica l tablet needed for Branch Insomnia. ibuprofen 2021-0 Yes [id number] 600mg Take 1 [facility] 600 mg 9-12 [id number] tablet by ity of tablet 00:00: mouth [place] 00 every 6 Medical (six) Branch hours as needed for Pain (scale 4-6). busPIRone 2021-0 Yes [id number] 10mg Take 1 U nivers 10 mg 9-12 tablet by ity of tablet 00:00: mouth in [place] 00 the Medical morning Branch and 1 tablet in the evening. SERTraline 2021-0 Yes [id number] 50mg Take 1 U nivers (ZOLOFT) 50 9-12 tablet by ity of mg tablet 00:00: mouth in [facility] the Medical morning. Branch doxylamine 0 Yes [id number] 25mg Take 1 U nivers (UNISOM, 9-12 tablet by ity of DOXYLAMINE, 00:00: mouth [place] 25 mg 00 bedtime as Medica l tablet needed for Branch Insomnia. ibuprofen 2021-0 Yes [id number] 600mg Take 1 [facility] 600 mg 9-12 [id number] tablet by ity of tablet 00:00: mouth [place] 00 every 6 Medical (six) Branch hours as needed for Pain (scale 4-6). busPIRone 2021-0 Yes [id number] 10mg Take 1 U nivers 10 mg 9-12 tablet by ity of tablet 00:00: mouth in [place] the Medical morning Branch and 1 tablet in the evening. SERTraline 2021-0 Yes [id number] 50mg Take 1 [facility] (ZOLOFT) 50 9-12 tablet by ity of mg tablet 00:00: mouth in [facility] 00 the Medical morning. Branch doxylamine 2021-0 Yes [id number] 25mg Take 1 [facility] (UNISOM, 9-12 tablet by ity of DOXYLAMINE, 00:[place] 25 mg 00 bedtime as Medica l tablet needed for Branch Insomnia. ibuprofen 2021-0 Yes [id number] 600mg Take 1 [facility] 600 mg 9-12 [id number] tablet by ity of tablet 00:00: mouth [place] 00 every 6 Medical (six) Branch hours as needed for Pain (scale 4-6). busPIRone 2021-0 Yes [id number] 10mg Take 1 [facility] 10 mg 9-12 tablet by ity of tablet 00:00: mouth in [place] 00 the Medical morning Branch and 1 tablet in the evening. SERTraline 2021-0 Yes [id number] 50mg Take 1 [facility] (ZOLOFT) 50 9-12 tablet by [facility] [place] 00 the Medical morning. Branch doxylamine 2021-0 Yes [id number] 25mg Take 1 [facility] (UNISOM, 9-12 tablet by ity of DOXYLAMINE, 00[place]: [place] 25 mg 00 bedtime as Medica l tablet needed for Branch Insomnia. ibuprofen 2021-0 Yes [id number] 600mg Take 1 [facility] 600 mg 9-12 [id number] tablet by ity of tablet 00:00: mouth [place] 00 every 6 Medical (six) Branch hours as needed for Pain (scale 4-6). busPIRone 2021-0 Yes [id number] 10mg Take 1 [facility] 10 mg 9-12 tablet by ity of tablet 00:00: mouth in [place] 00 the Medical morning Branch and 1 tablet in the evening. SERTraline 2021-0 Yes [id number] 50mg Take 1 [facility] (ZOLOFT) 50 9-12 tablet by ity of mg tablet 00:00: mouth in [facility] 00 the Medical morning. Branch doxylamine 2021-0 Yes [id number] 25mg Take 1 [facility] (UNISOM, 9-12 tablet by ity of DOXYLAMINE, 00:[place]: [place] 25 mg 00 bedtime as Medica l tablet needed for Branch Insomnia. ibuprofen 2021-0 Yes [id number] 600mg Take 1 [facility] 600 mg 9-12 [id number] tablet by ity of tablet 00:00: mouth [place] 00 every 6 Medical (six) Branch hours as needed for Pain (scale 4-6). busPIRone 2021-0 Yes [id number] 10mg Take 1 [facility] 10 mg 9-12 tablet by ity of tablet 00:00: mouth in [place] 00 the Medical morning Branch and 1 tablet in the evening. SERTraline 2021-0 Yes [id number] 50mg Take 1 [facility] (ZOLOFT) 50 9-12 tablet by [facility] [place] mg tablet 00:[place] 00 the Medical morning. Branch doxylamine 2021-0 Yes [id number] 25mg Take 1 [facility] (UNISOM, 9-12 tablet by ity of DOXYLAMINE, 00[place]: [place] 25 mg 00 bedtime as Medica l tablet needed for Branch Insomnia. ibuprofen 2021-0 Yes [id number] 600mg Take 1 [facility] 600 mg 9-12 [id number] tablet by ity of tablet 00:00: mouth [place] 00 every 6 Medical (six) Branch hours as needed for Pain (scale 4-6). busPIRone 2021-0 Yes [id number] 10mg Take 1 [facility] 10 mg 9-12 tablet by ity of tablet 00:00: mouth in [place] 00 the Medical morning Branch and 1 tablet in the evening. SERTraline 2021-0 Yes [id number] 50mg Take 1 [facility] (ZOLOFT) 50 9-12 tablet by ity of mg tablet 00:00[place] the Medical morning. Branch doxylamine 2021-0 Yes [id number] 25mg Take 1 [facility] (UNISOM, 9-12 tablet by ity of DOXYLAMINE, 00:[place]: [place] 25 mg 00 bedtime as Medica l tablet needed for Branch Insomnia. ibuprofen 2021-0 Yes [id number] 600mg Take 1 [facility] 600 mg 9-12 [id number] tablet by ity of tablet 00:00: mouth [place] 00 every 6 Medical (six) Branch hours as needed for Pain (scale 4-6). busPIRone 2021-0 Yes [id number] 10mg Take 1 [facility] 10 mg 9-12 tablet by ity of tablet 00:00: mouth in [place] 00 the Medical morning Branch and 1 tablet in the evening. SERTraline 2021-0 Yes [id number] 50mg Take 1 [facility] (ZOLOFT) 50 9-12 tablet by [facility] [place] mg tablet 00:00: [place] 00 the Medical morning. Branch doxylamine 2021-0 Yes [id number] 25mg Take 1 [facility] (UNISOM, 9-12 tablet by ity of DOXYLAMINE, 00:[place]: [place] 25 mg 00 bedtime as Medica l tablet needed for Branch Insomnia. ibuprofen 2021-0 Yes [id number] 600mg Take 1 [facility] 600 mg 9-12 [id number] tablet by ity of tablet 00:00: mouth [place] 00 every 6 Medical (six) Branch hours as needed for Pain (scale 4-6). busPIRone 2021-0 Yes [id number] 10mg Take 1 [facility] 10 mg 9-12 tablet by ity of tablet 00:00: mouth in [place] 00 the Medical morning Branch and 1 tablet in the evening. SERTraline 2021-0 Yes [id number] 50mg Take 1 [facility]ivers (ZOLOFT) 50 9-12 tablet by ity of mg tablet 00:00: [facility] [place] the Medical morning. Branch doxylamine 2021-0 Yes [id number] 25mg Take 1 [facility] (UNISOM, 9-12 tablet by ity of DOXYLAMINE, 00:00: [place] 25 mg 00 bedtime as Medica l tablet needed for Branch Insomnia. ibuprofen 2021-0 Yes [id number] 600mg Take 1 [facility] 600 mg 9-12 [id number] tablet by ity of tablet 00:00: mouth [place] 00 every 6 Medical (six) Branch hours as needed for Pain (scale 4-6). busPIRone 2021-0 Yes [id number] 10mg Take 1 [facility] 10 mg 9-12 tablet by ity of tablet 00:00: mouth in [place] the Medical morning Branch and 1 tablet in the evening. SERTraline 2021-0 Yes [id number] 50mg Take 1 [facility] (ZOLOFT) 50 9-12 tablet by [facility] mg tablet 00:00: [place] 00 the Medical morning. Branch doxylamine 2021-0 Yes [id number] 25mg Take 1 [facility] n[facility] (UNISOM, 9-12 tablet by ity of DOXYLAMINE, 00:00: [place] 25 mg 00 bedtime as Medica l tablet needed for Branch Insomnia. ibuprofen 2021-0 Yes [id number] 600mg Take 1 [facility] 600 mg 9-12 [id number] tablet by ity of tablet 00:00: mouth [place] 00 every 6 Medical (six) Branch hours as needed for Pain (scale 4-6). busPIRone Yes [id number] 10mg Take 1 [facility] 10 mg 9-12 tablet by ity of tablet 00:00: mouth in [place] 00 the Medical morning Branch and 1 tablet in the evening. SERTraline Yes [id number] 50mg Take 1 [facility] nivers (ZOLOFT) 50 9-12 tablet by ity of mg tablet 00:00: mouth in [facility] 00 the Medical morning. Branch doxylamine Yes [id number] 25mg Take 1 [facility] (UNISOM, 9-12 tablet by ity of DOXYLAMINE, 00:00: [place] 25 mg 00 bedtime as Medica l tablet needed for Branch Insomnia. ibuprofen Yes [id number] 600mg Take 1 [facility] 600 mg 9-12 [id number] tablet by ity of tablet 00:00: mouth [place] 00 every 6 Medical (six) Branch hours as needed for Pain (scale 4-6). albuterol 2021- No [id number] 2{puff} Inhale 2 [facility] 90 3-28 09-12 Puffs ity of mcg/actuati 00:00: 00:[place] 6 [place] inhaler 00 :00 (six) Medical hours as Branch needed for Wheezing or Shortness of Breath. fluticasone 2021- No [id number] 2{spray Use 2 [facility] propionate 3-27 03-12 } Sprays in ity of 50 00:00: 00:00 each [place] mcg/actuati 00 :00 nostril Medic al on nasal daily. Branch spray albuterol 2021- No [id number] 2{puff} Inhale 2 [facility] 90 3-28 09-12 Puffs ity of mcg/actuati 00:00: 00:00 [place] 6 [place] inhaler 00 :00 (six) Medical hours as Branch needed for Wheezing or Shortness of Breath. fluticasone 2021- No [id number] 2{spray Use 2 [facility] propionate 3-28 09-12 } Sprays in ity of 50 00:00: 00:00 each [place] mcg/actuati 00 :00 nostril Medic al on nasal daily. Branch spray Immunizations Ordered Filled Immunization Date Status Comments [facility] e Immunization Name Name TD 2021-09-10 Completed University of 00:00:00 [facility] Branch TDAP 2021-09-10 Completed University of 00:00:00 [facility] Branch TDAP 2021-09-10 Completed University of 00:00:00 [facility] Branch TDAP 2021-09-10 Completed University of 00:00:00 [place] [facility] TDAP 2021-09-10 Completed University of 00:00:00 [facility] Branch TDAP 2021-09-10 Completed University of 00:00:00 [facility] Branch TDAP 2021-09-10 Completed University of 00:00:00 [facility] TDAP 2021-09-10 Completed University of 00:00:00 [facility] TDAP 2021-09-10 Completed University of 00:00:00 [facility] TDAP 2021-09-10 Completed University of 00:00:00 [facility] TDAP 2021-09-10 Completed University of 00:00:00 [facility] TDAP 2021-09-10 Completed University of 00:00:00 [facility] TDAP 2021-09-10 Completed University of 00:00:00 [facility] TDAP 2021-09-10 Completed University of 00:00:00 [facility] TDAP 2021-09-10 Completed University of 00:00:00 [facility] TDAP 2021-09-10 Completed University of 00:00:00 [facility] TDAP 2021-09-10 Completed University of 00:00:00 [facility] TDAP 2021-09-10 Completed University of 00:00:00 [facility] TDAP 2021-09-10 Completed University of 00:00:00 [facility] TDAP 2021-09-10 Completed University of 00:00:00 [facility] TDAP 2021-09-10 Completed University of 00:00:00 [facility] TDAP 2021-09-10 Completed University of 00:00:00 [facility] TDAP 2021-09-10 Completed University of 00:00:00 [facility] TDAP 2021-09-10 Completed University of 00:00:00 [facility] TDAP 2021-09-10 Completed University of 00:00:00 [place] [facility] [place] TDAP 2021-09-10 Completed University of 00:00:00 [place] [facility] TDAP 2021-09-10 Completed University of 00:00:00 [place] [facility] TDAP 2021-09-10 Completed University of 00:00:00 [place] [facility] [place] TDAP 2021-09-10 Completed University of 00:00:00 [place] [facility] TDAP 2021-09-10 Completed University of 00:00:00 [place] [facility] [place] TDAP 2021-09-10 Completed University of 00:00:00 [facility] TDAP 2021-09-10 Completed University of 00:00:00 [facility] SARS-COV-2 COVID-19 2020-10-28 Completed Unive rsity of PFIZER VACCINE 00:00:00 [facility] SARS-COV-2 COVID-19 2020-10-28 Completed Unive rsity of PFIZER VACCINE 00:00:00 [facility] SARS-COV-2 COVID-19 2020-10-28 Completed Unive rsity of PFIZER VACCINE 00:00:00 [facility] SARS-COV-2 COVID-19 2020-10-28 Completed Unive rsity of PFIZER VACCINE 00:00:00 [facility] SARS-COV-2 COVID-19 2020-10-28 Completed Unive rsity of PFIZER VACCINE 00:00:00 [facility] SARS-COV-2 COVID-19 2020-10-28 Completed Unive rsity of PFIZER VACCINE 00:00:00 [facility] SARS-COV-2 COVID-19 2020-10-28 Completed Unive rsity of PFIZER VACCINE 00:00:00 [facility] SARS-COV-2 COVID-19 2020-10-28 Completed Unive rsity of PFIZER VACCINE 00:00:00 [facility] SARS-COV-2 COVID-19 2020-10-28 Completed Unive rsity of PFIZER VACCINE 00:00:00 [facility] SARS-COV-2 COVID-19 2020-10-28 Completed Unive rsity of PFIZER VACCINE 00:00:00 [facility] SARS-COV-2 COVID-19 2020-10-28 Completed Unive rsity of PFIZER VACCINE 00:00:00 [facility] [place] Branch SARS-COV-2 COVID-19 2020-10-28 Completed Unive rsity of PFIZER VACCINE 00:00:00 [facility] [place] Branch SARS-COV-2 COVID-19 2020-10-28 Completed Unive rsity of PFIZER VACCINE 00:00:00 [facility] [place] Branch SARS-COV-2 COVID-19 2020-10-28 Completed Unive rsity of PFIZER VACCINE 00:00:00 [facility] [place] Branch SARS-COV-2 COVID-19 2020-10-28 Completed Unive rsity of PFIZER VACCINE 00:00:00 [facility] [place] Branch SARS-COV-2 COVID-19 2020-10-28 Completed Unive rsity of PFIZER VACCINE 00:00:00 [facility] [place] Branch SARS-COV-2 COVID-19 2020-10-28 Completed Unive rsity of PFIZER VACCINE 00:00:00 [facility] [place] Branch SARS-COV-2 COVID-19 2020-10-28 Completed Unive rsity of PFIZER VACCINE 00:00:00 [facility] [place] Branch SARS-COV-2 COVID-19 2020-10-28 Completed Unive rsity of PFIZER VACCINE 00:00:00 [facility] [place] Branch SARS-COV-2 COVID-19 2020-10-28 Completed Unive rsity of PFIZER VACCINE 00:00:00 [facility] [place] Branch SARS-COV-2 COVID-19 2020-10-28 Completed Unive rsity of PFIZER VACCINE 00:00:00 [facility] [place] Branch SARS-COV-2 COVID-19 2020-10-28 Completed Unive rsity of PFIZER VACCINE 00:00:00 [facility] [place] Branch SARS-COV-2 COVID-19 2020-10-28 Completed Unive rsity of PFIZER VACCINE 00:00:00 [facility] [place] Branch SARS-COV-2 COVID-19 2020-10-28 Completed Unive rsity of PFIZER VACCINE 00:00:00 [facility] [place] Branch SARS-COV-2 COVID-19 2020-10-28 Completed Unive rsity of PFIZER VACCINE 00:00:00 [facility] [place] Branch SARS-COV-2 COVID-19 2020-10-28 Completed Unive rsity of PFIZER VACCINE 00:00:00 [facility] [place] Branch SARS-COV-2 COVID-19 2020-10-28 Completed Unive rsity of PFIZER VACCINE 00:00:00 [facility] [place] Branch SARS-COV-2 COVID-19 2020-10-28 Completed Unive rsity of PFIZER VACCINE 00:00:00 [facility] [place] Branch SARS-COV-2 COVID-19 2020-10-28 Completed Unive rsity of PFIZER VACCINE 00:00:00 [facility] [place] Branch SARS-COV-2 COVID-19 2020-10-28 Completed Unive rsity of PFIZER VACCINE 00:00:00 [facility] [place] Branch SARS-COV-2 COVID-19 2020-10-28 Completed Unive rsity of PFIZER VACCINE 00:00:00 [facility] [place] Branch SARS-COV-2 COVID-19 2020-10-28 Completed Unive rsity of PFIZER VACCINE 00:00:00 [facility] [place] Branch SARS-COV-2 COVID-19 2020-10-07 Completed Unive rsity of PFIZER VACCINE 00:00:00 [facility] [place] Branch SARS-COV-2 COVID-19 2020-10-07 Completed Unive rsity of PFIZER VACCINE 00:00:00 [facility] [place] Branch SARS-COV-2 COVID-19 2020-10-07 Completed Unive rsity of PFIZER VACCINE 00:00:00 [facility] [place] Branch SARS-COV-2 COVID-19 2020-10-07 Completed Unive rsity of PFIZER VACCINE 00:00:00 [facility] [place] Branch SARS-COV-2 COVID-19 2020-10-07 Completed Unive rsity of PFIZER VACCINE 00:00:00 [facility] [place] Branch SARS-COV-2 COVID-19 2020-10-07 Completed Unive rsity of PFIZER VACCINE 00:00:00 [facility] [place] Branch SARS-COV-2 COVID-19 2020-10-07 Completed Unive rsity of PFIZER VACCINE 00:00:00 [facility] [place] Branch SARS-COV-2 COVID-19 2020-10-07 Completed Unive rsity of PFIZER VACCINE 00:00:00 [facility] [place] Branch SARS-COV-2 COVID-19 2020-10-07 Completed Unive rsity of PFIZER VACCINE 00:00:00 [facility] [place] Branch SARS-COV-2 COVID-19 2020-10-07 Completed Unive rsity of PFIZER VACCINE 00:00:00 [facility] [place] Branch SARS-COV-2 COVID-19 2020-10-07 Completed Unive rsity of PFIZER VACCINE 00:00:00 [place] [facility] Branch SARS-COV-2 COVID-19 2020-10-07 Completed Unive rsity of PFIZER VACCINE 00:00:00 [facility] [place] Branch SARS-COV-2 COVID-19 2020-10-07 Completed Unive rsity of PFIZER VACCINE 00:00:00 [facility] [place] Branch SARS-COV-2 COVID-19 2020-10-07 Completed Unive rsity of PFIZER VACCINE 00:00:00 [facility] [place] Branch SARS-COV-2 COVID-19 2020-10-07 Completed Unive rsity of PFIZER VACCINE 00:00:00 [facility] [place] Branch SARS-COV-2 COVID-19 2020-10-07 Completed Unive rsity of PFIZER VACCINE 00:00:00 [facility] [place] Branch SARS-COV-2 COVID-19 2020-10-07 Completed Unive rsity of PFIZER VACCINE 00:00:00 [facility] [place] Branch SARS-COV-2 COVID-19 2020-10-07 Completed Unive rsity of PFIZER VACCINE 00:00:00 [facility] [place] Branch SARS-COV-2 COVID-19 2020-10-07 Completed Unive rsity of PFIZER VACCINE 00:00:00 [facility] [place] Branch SARS-COV-2 COVID-19 2020-10-07 Completed Unive rsity of PFIZER VACCINE 00:00:00 [facility] [place] Branch SARS-COV-2 COVID-19 2020-10-07 Completed Unive rsity of PFIZER VACCINE 00:00:00 [facility] [place] Branch SARS-COV-2 COVID-19 2020-10-07 Completed Unive rsity of PFIZER VACCINE 00:00:00 [facility] [place] Branch SARS-COV-2 COVID-19 2020-10-07 Completed Unive rsity of PFIZER VACCINE 00:00:00 [facility] [place] Branch SARS-COV-2 COVID-19 2020-10-07 Completed Unive rsity of PFIZER VACCINE 00:00:00 [facility] [place] Branch SARS-COV-2 COVID-19 2020-10-07 Completed Unive rsity of PFIZER VACCINE 00:00:00 [facility] [place] Branch SARS-COV-2 COVID-19 2020-10-07 Completed Unive rsity of PFIZER VACCINE 00:00:00 [facility] SARS-COV-2 COVID-19 2020-10-07 Completed Unive rsity of PFIZER VACCINE 00:00:00 [facility] SARS-COV-2 COVID-19 2020-10-07 Completed Unive rsity of PFIZER VACCINE 00:00:00 [facility] SARS-COV-2 COVID-19 2020-10-07 Completed Unive rsity of PFIZER VACCINE 00:00:00 [facility] SARS-COV-2 COVID-19 2020-10-07 Completed Unive rsity of PFIZER VACCINE 00:00:00 [facility] SARS-COV-2 COVID-19 2020-10-07 Completed Unive rsity of PFIZER VACCINE 00:00:00 [facility] SARS-COV-2 COVID-19 2020-10-07 Completed Unive rsity of PFIZER VACCINE 00:00:00 [facility] Varicella 2019-10-16 Completed University of (varivax)(chicken 00:00:00 [place] [facility] pox) Branch Varicella 2019-10-16 Completed University of (varivax)(chicken 00:00:00 [place] [facility] pox) Branch Varicella 2019-10-16 Completed University of (varivax)(chicken 00:00:00 [place] [facility] pox) Branch Varicella 2019-10-16 Completed University of (varivax)(chicken 00:00:00 [place] [facility] pox) Branch Varicella 2019-10-16 Completed University of (varivax)(chicken 00:00:00 [place] [facility] pox) Branch Varicella 2019-10-16 Completed University of (varivax)(chicken 00:00:00 [place] [facility] pox) Branch Varicella 2019-10-16 Completed University of (varivax)(chicken 00:00:00 [place] [facility] pox) Branch Varicella 2019-10-16 Completed University of (varivax)(chicken 00:00:00 [place] [facility] pox) Branch Varicella 2019-10-16 Completed University of (varivax)(chicken 00:00:00 [place] [facility] pox) Branch Varicella 2019-10-16 Completed University of (varivax)(chicken 00:00:00 [place] [facility] pox) Branch Varicella 2019-10-16 Completed University of (varivax)(chicken 00:00:00 [place] [facility] pox) Branch Varicella 2019-10-16 Completed University of (varivax)(chicken 00:00:00 [place] [facility] pox) Branch Varicella 2019-10-16 Completed University of (varivax)(chicken 00:00:00 [place] [facility] pox) Branch Varicella 2019-10-16 Completed University of (varivax)(chicken 00:00:00 [place] [facility] pox) Branch Varicella 2019-10-16 Completed University of (varivax)(chicken 00:00:00 [place] [facility] ed[facility] pox) Branch Varicella 2019-10-16 Completed University of (varivax)(chicken 00:00:00 [place] [facility] pox) Branch Varicella 2019-10-16 Completed University of (varivax)(chicken 00:00:00 [place] [facility] pox) Branch Varicella 2019-10-16 Completed University of (varivax)(chicken 00:00:00 [place] [facility] pox) Branch Varicella 2019-10-16 Completed University of (varivax)(chicken 00:00:00 [place] [facility] pox) Branch Varicella 2019-10-16 Completed University of (varivax)(chicken 00:00:00 [place] [facility] pox) Branch Varicella 2019-10-16 Completed University of (varivax)(chicken 00:00:00 [place] [facility] pox) Branch Varicella 2019-10-16 Completed University of (varivax)(chicken 00:00:00 [place] [facility] pox) Branch Varicella 2019-10-16 Completed University of (varivax)(chicken 00:00:00 [place] [facility] ed[facility] pox) Branch Varicella 2019-10-16 Completed University of (varivax)(chicken 00:00:00 [place] [facility] ed[facility] pox) Branch Varicella 2019-10-16 Completed University of (varivax)(chicken 00:00:00 [place] [facility] pox) Branch Varicella 2019-10-16 Completed University of (varivax)(chicken 00:00:00 [place] [facility] pox) Branch Varicella 2019-10-16 Completed University of (varivax)(chicken 00:00:00 [place] [facility] pox) Branch Varicella 2019-10-16 Completed University of (varivax)(chicken 00:00:00 [place] [facility] pox) Branch Varicella 2019-10-16 Completed University of (varivax)(chicken 00:00:00 [place] [facility] pox) Branch Varicella 2019-10-16 Completed University of (varivax)(chicken 00:00:00 [place] [facility] pox) Branch Varicella 2019-10-16 Completed University of (varivax)(chicken 00:00:00 [place] [facility] pox) Branch Varicella 2019-10-16 Completed University of (varivax)(chicken 00:00:00 [place] [facility] pox) Branch Td 2012-06-13 Completed University of 00:00:00 [facility] Td 2012-06-13 Completed University of 00:00:00 [facility] Td 2012-06-13 Completed University of 00:00:00 [facility] Td 2012-06-13 Completed University of 00:00:00 [facility] Td 2012-06-13 Completed University of 00:00:00 [facility] Td 2012-06-13 Completed University of 00:00:00 [facility] Td 2012-06-13 Completed University of 00:00:00 [facility] Td 2012-06-13 Completed University of 00:00:00 [facility] Td 2012-06-13 Completed University of 00:00:00 [facility] Td 2012-06-13 Completed University of 00:00:00 [facility] Td 2012-06-13 Completed University of 00:00:00 [facility] Td 2012-06-13 Completed University of 00:00:00 [facility] Td 2012-06-13 Completed University of 00:00:00 [facility] Td 2012-06-13 Completed University of 00:00:00 [facility] TD, NOS 2012-06-13 Completed University of 00:00:00 [facility] TD, NOS 2012-06-13 Completed University of 00:00:00 [facility] TD, NOS 2012-06-13 Completed University of 00:00:00 [facility] TD, NOS 2012-06-13 Completed University of 00:00:00 [facility] TD, NOS 2012-06-13 Completed University of 00:00:00 [facility] TD, NOS 2012-06-13 Completed University of 00:00:00 [facility] TD, NOS 2012-06-13 Completed University of 00:00:00 [facility] TD, NOS 2012-06-13 Completed University of 00:00:00 [facility] TD, NOS 2012-06-13 Completed University of 00:00:00 [place] [facility] TD, NOS 2012-06-13 Completed University of 00:00:00 [place] [facility] TD, NOS 2012-06-13 Completed University of 00:00:00 [place] [facility] TD, NOS 2012-06-13 Completed University of 00:00:00 [place] [facility] TD, NOS 2012-06-13 Completed University of 00:00:00 [place] [facility] TD, NOS 2012-06-13 Completed University of 00:00:00 [place] [facility] TD, NOS 2012-06-13 Completed University of 00:00:00 [place] [facility] TD, NOS 2012-06-13 Completed University of 00:00:00 [place] [facility] TD, NOS 2012-06-13 Completed University of 00:00:00 [place] [facility] TD, NOS 2012-06-13 Completed University of 00:00:00 [facility] Hep B, Adol or Pedi 2006-01-23 Completed Unive rsity of Dosage 00:00:00 [facility] Hep B, Adol or Pedi 2006-01-23 Completed Unive rsity of Dosage 00:00:00 [facility] Rubella 2005-05-17 Completed University of 00:00:00 [place] [facility] Rubella 2005-05-17 Completed University of 00:00:00 [place] [facility] Rubella 2005-05-17 Completed University of 00:00:00 [place] [facility] Rubella 2005-05-17 Completed University of 00:00:00 [place] [facility] Rubella 2005-05-17 Completed University of 00:00:00 [place] [facility] Rubella 2005-05-17 Completed University of 00:00:00 [place] [facility] Rubella 2005-05-17 Completed [facility] of 00:00:00 [place] [facility] Rubella 2005-05-17 Completed [facility] 00:00:00 [place] [facility] Rub[facility] 2005-05-17 Completed [facility] 00:00:00 [place] [facility] Rub[facility] 2005-05-17 Completed [facility] 00:00:00 [place] [facility] Rub[facility] 2005-05-17 Completed [facility] 00:00:00 [place] [facility] Rub[facility] 2005-05-17 Completed [facility] 00:00:00 [place] [facility] Rubella 2005-05-17 Completed [facility] 00:00:00 [place] [facility] Rubella 2005-05-17 Completed [facility] 00:00:00 [place] [facility] Rubella 2005-05-17 Completed [facility] 00:00:00 [place] [facility] Rubella 2005-05-17 Completed [facility] 00:00:00 [place] [facility] Rubella 2005-05-17 Completed [facility] 00:00:00 [place] [facility] Rubella 2005-05-17 Completed [facility] 00:00:00 [place] [facility] Rubella 2005-05-17 Completed [facility] 00[facility]00:00 [place] [facility] Rubella 2005-05-17 Completed [facility] 00:00:00 [place] [facility] Rubella 2005-05-17 Completed [facility] 00:00:00 [place] [facility] Rubella 2005-05-17 Completed [facility] 00:00:00 [place] [facility] Rubella 2005-05-17 Completed [facility] 00:00:00 [place] [facility] Rubella 2005-05-17 Completed [facility] 00:00:00 [place] [facility] Rubella 2005-05-17 Completed [facility] 00:00:00 [place] [facility] Rubella 2005-05-17 Completed [facility] 00:00:00 [place] [facility] Rub[place] 2005-05-17 Completed [facility] 00:00:00 [place] [facility] Rubella 2005-05-17 Completed [facility] 00:00:00 [place] [facility] Rubella 2005-05-17 Completed [facility] 00:00:00 [place] [facility] Rub[place] 2005-05-17 Completed [facility] of 00:00:00 [facility] Rubella 2005-05-17 Completed University of 00:00:00 [facility] Rubella 2005-05-17 Completed University of 00:00:00 [facility] Vital Signs Vital Name Observation Time Observation Value Comments Source Body weight 2022-12-23 18:41:00 85.73 kg [facility] BMI 2022-12-23 18:41:00 33.48 kg/m2 [facility] Systolic blood 2022-12-09 16:51:00 116 mm[Hg] Univer sity of pressure [facility] Diastolic blood 2022-12-09 16:51:00 97 mm[Hg] Unive rsity of pressure [facility] Respiratory rate 2022-12-09 16:51:00 15 /min Univ ersity of [facility] Oxygen saturation in 2022-12-09 16:51:00 97 /min [facility] Arterial blood by [facility] Pulse oximetry Branch Heart rate 2022-12-09 16:46:00 62 /min [facility] Body temperature 2022-12-09 16:01:00 36.89 Jena Univ ersity [facility] [place] [facility] Body height 2022-12-09 14:17:00 160 cm [facility] [place] [facility] Body weight 2022-12-09 14:17:00 85.73 kg [facility] [place] [facility] BMI 2022-12-09 14:17:00 33.48 kg/m2 [facility] [place] [facility] Systolic blood 2022-12-09 16:51:00 116 mm[Hg] Univer sity of pressure [place] [facility] Diastolic blood 2022-12-09 16:51:00 97 mm[Hg] Unive rsity of [facility] Respiratory rate 2022-12-09 16:51:00 15 /min [facility] Oxygen saturation in 2022-12-09 16:51:00 97 /min [facility] Arterial blood by [facility] Pulse oximetry Branch Heart rate 2022-12-09 16:46:00 62 /min [facility] [place] [facility] Body temperature 2022-12-09 16:01:00 36.89 Jena Univ ersity [facility] [place] [facility] Body height 2022-12-09 14:17:00 160 cm [facility] [place] [facility] Body weight 2022-12-09 14:17:00 85.73 kg [facility] [place] [facility] BMI 2022-12-09 14:17:00 33.48 kg/m2 [facility] [place] [facility] Body weight 2022-11-19 19:16:00 87.998 kg [facility] [place] [facility] BMI 2022-11-19 19:16:00 34.37 kg/m2 [facility] [place] [facility] Systolic blood 2022-08-20 20:47:00 126 mm[Hg] Univer sity of pressure [facility] Diastolic blood 2022-08-20 20:47:00 89 mm[Hg] Unive rsity of [facility] Heart rate 2022-08-20 20:46:00 92 /min [facility] [place] [facility] [place] Body temperature 2022-08-20 20:46:00 36.67 Jena Univ ersity of [facility] Respiratory rate 2022-08-20 20:46:00 18 /min Univ ersity of [place] [facility] Body height 2022-08-20 20:46:00 160 cm [facility] [place] [facility] Body weight 2022-08-20 20:46:00 88.406 kg [facility] [place] [facility] BMI 2022-08-20 20:46:00 34.52 kg/m2 [facility] [place] [facility] Oxygen saturation in 2022-08-20 20:46:00 99 /min University of Arterial blood by [facility] Pulse oximetry Branch Systolic blood 2022-05-03 16:16:00 123 mm[Hg] Univer sity of pressure [place] [facility] Diastolic blood 2022-05-03 16:16:00 80 mm[Hg] Unive rsity of pressure [facility] Heart rate 2022-05-03 16:16:00 96 /min [facility] [place] [facility] Body weight 2022-05-03 16:16:00 86.183 kg [facility] [place] [facility] [place] BMI 2022-05-03 16:16:00 33.66 kg/m2 [facility] [place] [facility] Oxygen saturation in 2022-05-03 16:16:00 98 /min University of Arterial blood by [facility] Pulse oximetry Branch Body height 2022-03-29 15:30:00 160 cm [facility] [place] [facility] Body weight 2022-03-29 15:30:00 86.183 kg [facility] [place] [facility] BMI 2022-03-29 15:30:00 33.66 kg/m2 [facility] [place] [facility] Systolic blood 2022-03-11 21:29:00 148 mm[Hg] Univer sity of pressure [facility] Diastolic blood 2022-03-11 21:29:00 99 mm[Hg] Unive rsity of pressure [facility] Heart rate 2022-03-11 21:29:00 94 /min [facility] [place] [facility] Body temperature 2022-03-11 21:29:00 37.28 Jena Univ [facility] [place] [facility] Respiratory rate 2022-03-11 21:29:00 16 /min Univ [facility] [place] [facility] Body height 2022-03-11 21:29:00 160 cm [facility] [place] [facility] Body weight 2022-03-11 21:29:00 88.451 kg [facility] [place] [facility] BMI 2022-03-11 21:29:00 34.54 kg/m2 [facility] Oxygen saturation in 2022-03-11 21:29:00 98 /min [facility] Arterial blood by [facility] Pulse oximetry Branch Systolic blood 2022-03-11 20:36:00 120 mm[Hg] Univer sity of pressure [facility] Diastolic blood 2022-03-11 20:36:00 81 mm[Hg] Unive rsity of pressure [facility] Heart rate 2022-03-11 20:36:00 98 /min [facility] Body temperature 2022-03-11 20:36:00 36.78 Jena [facility] Res[facility] rate 2022-03-11 20:36:00 18 /min [facility] Body height 2022-03-11 20:36:00 160 cm [facility] Body weight 2022-03-11 20:36:00 88.361 kg [facility] BMI 2022-03-11 20:36:00 34.51 kg/m2 [facility] Procedures Procedure Date / Time Performed Performing Clinician Raquel OLIVEROS'S RELEASE 2022-12-09 15:03:00 Starla Hernandez [facility] POCT TEST 2022-12-09 13:48:00 Monroe Molina [facility] POCT TEST 2022-12-09 13:48:[address] [facility] PATIENT FINANCIAL 2022-12-06 13:26:58 Doctor Unassigned, No [facility] DISCLOSURE AND 2022-11-20 05:01:00 Doctor Unassigned, No [facility] [place] CONSENT, MEDICAL AND Name Medical [facility] SURGICAL PROCEDURES DISCLOSURE AND 2022-11-20 05:01:00 Doctor Unassigned, No [facility] [place] CONSENT, MEDICAL AND Name Medical [facility] SURGICAL PROCEDURES DSU PRE-OP 2022-11-19 05:01:00 Doctor Unassigned, No Univer [facility]ity of [facility] DSU PRE-OP 2022-11-19 05:01:00 Doctor Unassigned, No Univer [facility]ity of [facility] XR WRIST 3+ VW LEFT 2022-03-11 22:30:52 Chetan Mancia ty of [facility] CONSENT/REFUSAL FOR 2022-03-11 21:22:34 Doctor Unassigned, No Un [facility] DIAGNOSIS AND Name [facility] TREATMENT Encounters Start End Encounter Admission Attending Care Care Encounter Source Date/Time Date/Time Type Type Clinicians Facility Department ID 2022-05-16 Outpatient R MARY [facility] SOR [id number] Univers 10:50:03 STARLA ity [facility] 2021-07-04 Outpatient P [facility] C[facility]RIC [id number] Univers 18:57:55 ity of [facility] 2021-04-26 Outpatient P [facility] [id number] Univers 18:12:56 ity of [facility] 2021-04-26 Outpatient P [facility] [id number] Univers 17:00:28 ity of [facility] 2021-04-26 Outpatient P [facility] [id number] Univers 17:00:20 ity of [facility] 2021-04-26 Outpatient P [facility] [id number] Univers 14:24:51 ity of [facility] 2021-04-26 Outpatient P [facility] [id number] Univers 13:24:51 ity of [facility] 2021-04-26 Outpatient P [facility] [id number] Univers 13:17:51 ity [facility] 2023-01-02 2023-01-02 Outpatient SISSON_C [facility] [id number] [place] 00:00:00 00:00:00 0706 [facility] 2022-12-23 2022-12-23 Outpatient Nery FUENTES [facility] [id number] Univers 13:45:00 14:27:05 JUANY [facility] 2022-12-23 2022-12-23 Office Gina [facility] 1.2.840.114 [id number] Univers 13:45:00 14:27:05 Visit [facility] 350.1.13.10 it y of [place] 4.2.7.2.686 Devante as BERNARDO?BLEA [phone] Dc jennifer [address] MEDICAL OFFICE BUILDING 2022-12-18 2022-12-18 [facility] 1.2.840.114 [id number] Univers 00:00:00 00:00:00 (Out) Juany Painter HEALTH 350.1.13.10 it y of [place] 4.2.7.2.686 Devante as BERNARDO?BLEA [phone] Dc jennifer BUTLER [address] [facility] OFFICE [facility] 2022-12-13 2022-12-13 Patient Doctor [facility] 1.2.840.114 [id number] Univers 00:00:00 00:00:00 Secure Msg Unassigned, HEALTH 350.1.13.10 ity of [place] 4.2.7.2.686 Devante as BERNARDO?BLEA [phone] Dc jennifer BUTLER 198 [facility] 2022-12-11 2022-12-11 Letter [facility] 1.2.047.057 [id number] Univers 00:00:00 00:00:00 (Out) Starla Gruber HEALTH 350.1.13.10 it y of [place] 4.2.7.2.686 Devante as BERNARDO?BLEA [phone] Dc jennifer BUTLER 198 [facility] 2022-12-10 2022-12-10 Telephone [facility] 1.2.840.114 [id number] Univers 00:00:00 00:00:00 Starla Gruber HEALTH 350.1.13.10 it y of [place] 4.2.7.2.686 Devante as BERNARDO?BLEA [phone] Dc jennifer BUTLER 198 [facility] OFFICE [facility] 2022-12-10 2022-12-10 Telephone [facility] 1.2.840.114 [id number] Univers 00:00:00 00:00:00 Satrla Gruber HEALTH 350.1.13.10 it y of [place] 4.2.7.2.686 Devante as BERNARDO?BLEA [phone] Dc jennifer BUTLER 198 [facility] 2022-12-09 2022-12-09 [facility] [id number] Univers 08:40:00 12:00:00 STARLA ity of [facility] 2022-12-09 2022-12-09 [facility] Mary [facility] 1.2.840.114 [id number] Univers 08:40:00 12:00:00 Encounter Starla CHACON 350.1.13.10 ity of [facility] [place] [id number] [facility] 071 Branch 2022-12-09 2022-12-09 Surgery [facility] [id number] [id number] Univers 10:35:00 11:51:00 Starla CHACON 350.1.13.10 i ty of [facility] [place] [id number] [facility] 020 Branch 2022-12-06 2022-12-06 Deck Hand 2, Adc Lab [facility] 1.2.840.114 [id number] Univers 08:00:00 08:45:51 Visit Starla Hernandez 350.1.13.10 ity of [facility] [place] [phone] Dc dical NAL 353 [facility] 2022-12-06 2022-12-06 Outpatient [facility] [id number] Univers 08:00:00 08:00:00 STARLA spencer [facility] 2022-12-06 2022-12-06 Orders Doctor MATTI 1.2.840.114 [id number] Univers 00:00:00 00:00:00 Only Unassigned, DAMIAN 350.1.13.10 ity of [place] [facility] 4.2.7.2.686 Devante as [phone] [address] 2022-11-19 2022-11-19 Outpatient R GINA [facility] [id number] Univers 14:15:00 15:22:13 JUANY spencer [facility] 2022-11-19 2022-11-19 Office [facility] 1.2.840.114 [id number] Univers 14:15:00 15:22:13 Visit [facility] 350.1.13.10 it y of [place] 4.2.7.2.686 Devante as BERNARDO?BLEA [phone] Dc dical KNEY 198 [facility] OFFICE [facility] 2022-11-19 2022-11-19 Prep For Gina [facility] 1.2.840.114 [id number] Univers 00:00:00 00:00:00 Surgery [facility] HEALTH 350.1.13.10 it y of [place] 4.2.7.2.686 Devante as BERNARDO?BLEA [phone] [facility] 198 [facility] OFFICE [facility] 2022-08-21 2022-08-21 Letter MATTI Morgan 1.2.840.114 [id number] Univers 00:00:00 00:00:00 (Out) Romina DAMIAN 350.1.13.10 it y of HOSPITAL 4.2.7.2.686 Devante as [phone] [address] 2022-08-20 2022-08-20 Outpatient R EDSON [facility] [id number] Univers 14:40:00 15:05:15 INES itdominique [facility] 2022-08-20 2022-08-20 Urgent Ines Pena [facility] 1.2.840.114 [id number] Univers 14:40:00 15:05:15 Care Unknown, [facility] HEALTH 350.1.13.10 ity of [place] 4.2.7.2.686 Devante as BERNARDO?BLEA [phone] Dc jennifer BUTLER 370 [facility] OFFICE [facility] 2022-08-20 2022-08-20 Beverly Pena [facility] 1.2.840.114 [id number] Univers 00:00:00 00:00:00 (Out) [facility] 350.1.13.10 it [facility] 4.2.7.2.686 Devante as BERNARDO?BLEA [phone] Dc jennifer BUTLER [address] [facility] OFFICE [facility] 2022-05-21 2022-05-21 Telephone Mary [facility] 1.2.840.114 [id number] Univers 00:00:00 00:00:00 [facility] 350.1.13.10 it y of [place] 4.2.7.2.686 Devante as BERNARDO?BLEA [phone] Dc jennifer BUTLER 198 [facility] OFFICE [facility] 2022-05-17 2022-05-17 Outpatient R MARY [facility] [id number] Univers 00:00:00 00:00:00 STARLA dominique [facility] 2022-05-15 2022-05-15 Prep [facility] 1.2.840.114 [id number] Univers 00:00:00 00:00:00 Surgery Starla L HEALTH 350.1.13.10 it y of [place] 4.2.7.2.686 Devante as BERNARDO?BLEA [phone] Dc dickate BUTLER 198 [facility] OFFICE [facility] 2022-05-14 2022-05-14 Telephone [employer] [facility] [id number] [id number] Univers 00:00:00 00:00:00 Juany S HEALTH 350.1.13.10 it y of [place] 4.2.7.2.686 Devante as BERNARDO?BLEA [phone] Dc jennifer BUTLER [address] [place] [address] OFFICE [facility] 2022-05-10 2022-05-10 Outpatient [facility] [id number] Univers 10:30:00 10:30:00 [facility] 2022-05-10 2022-05-10 Telephone [facility] 1.2.840.114 [id number] Univers 00:00:00 00:00:00 Starla HEALTH 350.1.13.10 it y of [place] 4.2.7.2.686 Devante as BERNARDO?BLEA [phone] Dc jennifer BUTLER [address] [place] [address] OFFICE [facility] 2022-05-07 2022-05-07 Telephone [facility] 1.2.615.102 [id number] Univers 00:00:00 00:00:00 Juany S HEALTH 350.1.13.10 it y of [place] 4.2.7.2.686 Devante as BERNARDO?BLEA [phone] Me dical LUKE 198 [facility] OFFICE [facility] 2022-05-03 2022-05-03 Office [facility] 1.2.840.114 [id number] Univers 11:00:00 11:15:00 Visit Juany S HEALTH 350.1.13.10 it y of [place] 4.2.7.2.686 Devante as BERNARDO?BLEA [phone] Me dical KNEY 198 [facility] OFFICE [facility] 2022-05-03 2022-05-03 Outpatient R GINA [facility] [id number] Univers 11:00:00 11:00:00 JUANY ity [facility] 2022-04-08 2022-04-08 Outpatient BOSTON IGNACIO [facility] [id number] Univers 15:30:00 15:30:00 ity [facility] 2022-03-29 2022-03-29 Office Gina [facility] 1.2.840.114 [id number] Univers 10:30:00 11:00:00 Visit [facility] 350.1.13.10 it y of [place] 4.2.7.2.686 Devante as BERNARDO?BLEA [phone] Dc jennifer BUTLER 198 [facility] 2022-03-29 2022-03-29 Outpatient Nery FUENTES [facility] [id number] Univers 10:30:00 10:30:00 [facility] 2022-03-11 2022-03-11 Emergency X SHEREE, K [facility] ERT [id number] Univers 16:32:00 18:24:00 ity [facility] 2022-03-11 2022-03-11 Emergency Sheree [facility] 1.2.840.114 [id number] Univers 16:32:00 18:24:00 Theresa [place] 350.1.13.10 i ty of [place].2.7.2.[place] [id number] [facility] [address] [place] 2022-03-11 2022-03-11 Emergency X SHEREE, K [facility] ERT [id number] Univers 16:32:00 16:32:00 ity [facility] 2022-03-11 2022-03-11 Office [place] Patricia [facility] 1.2.728.369 [id number] Univers 15:30:00 16:08:30 Visit David [place] 350.1.13.10 i ty of [facility] 4.2.7.2.[place] [phone] Dc lingkate AMAYA 134 [facility] 2022-03-11 2022-03-11 Outpatient R [place] PATRICIA [facility] [id number] Univers 15:30:00 16:08:30 ity of [facility] 2022-03-11 2022-03-11 Outpatient R [place] PATRICIA [facility] [id number] Univers 15:30:00 15:30:00 ity of [facility] 2022-03-08 2022-03-08 Patient Augustine [facility] 1.2.840.114 [id number] Univers 00:00:00 00:00:00 Secure Msg Madiha OSWALDO 350.1.13.10 ity of [place] 4.2.7.2.[place] [phone] [address] 2022-02-13 2022-02-13 Telephone Harshad [place] [facility] 1.2.840.114 [id number] Univers 00:00:00 00:00:00 David CHACON 350.1.13.10 i ty of [place].2.7.2.[place] [id number] [address] 2022-01-24 2022-01-24 Outpatient R B[place] PATRICIA [facility] [id number] Univers 15:30:00 16:40:36 ity of [facility] 2022-01-24 2022-01-24 Office Harshad [facility] [id number] Univers 15:30:00 16:40:36 Visit David CHACON 350.1.13.10 i ty of [place] 4.2.7.2.[place] [id number] [address] 2022-01-24 2022-01-24 Outpatient R BOSTON PATRICIA [facility] [id number] Univers 15:30:00 16:40:36 ity of [facility] 2022-01-24 2022-01-24 Orders Doctor CHINO 1.2.840.114 [id number] Univers 00:00:00 00:00:00 Only Unassigned, DAMIAN 350.1.13.10 ity of [place] [facility] 4.2.7.2.686 Devante as [id number] [address] 2021-12-21 2021-12-21 Telephone [place] Patricia [facility] 1.2.840.114 [id number] Univers 00:00:00 00:00:00 Cam [place] 350.1.13.10 i ty of [place].2.[place] [id number] Dc dical [address] 2021-12-20 2021-12-20 Outpatient R HARSHAD [place] [facility] [id number] Univers 09:45:00 10:55:07 ity of [facility] 2021-12-20 2021-12-20 Office Patricia [facility] 1.2.456.382 [id number] Univers 09:45:00 10:55:07 Visit Cam [place] 350.1.13.10 i ty of [place] 4[place]2.7.2.[place] [phone] Dc dic[address] 2021-12-20 2021-12-20 Outpatient R HARSHAD B[place]ON [facility] [id number] Univers 09:45:00 10:55:07 ity of [facility] 2021-12-20 2021-12-20 Orders Doctor MATTI 1.2.840.114 [id number] Univers 00:00:00 00:00:00 Only Unassigned, DAMIAN 350.1.13.10 ity of [place] [facility] 4.2.7.2.686 Devante as [phone] [address] 2021-11-28 2021-11-28 Outpatient R HARSHAD [facility] [facility] [id number] Univers 10:30:00 10:30:00 ity of [facility] 2021-11-15 2021-11-15 Outpatient R HARSHAD [facility] [id number] Univers 15:45:00 16:37:16 ity [facility] 2021-11-15 2021-11-15 Routine Harshad [place] [facility] 1.2.079.291 [id number] Univers 15:45:00 16:37:16 Cam [place] 350.1.13.10 ity of Visit [place].2.7.2.[place] [id number] Me dical [address] 2021-10-19 2021-10-20 Inpatient P BOSTON PATRICIA [facility] CEDRIC [id number] Univers 10:21:00 18:10:00 ity of [facility] 2021-10-19 2021-10-20 Hospital [place] Patricia LASJ 1.2.840.114 [id number] Univers 10:21:00 18:10:00 Encounter David CHACON 350.1.13.10 ity of [place] 4.2.7.2.686 [facility] [phone] [address] 2021-10-19 2021-10-19 Anesthesia Monroe Molina [facility] 1.2.840.11 [id number] Univers 14:14:00 16:52:00 Event Jose David Huangrey Madina OSWALDO 350.1.13. 10 ity of [place] 4.2.7.2.686 [facility] [id number] [address] 2021-10-19 2021-10-19 [facility] 1.2.840.11 [id number] Univers 13:58:11 13:58:11 Event Jose David Huangrey Madina OSWALDO 350.1.13. 10 ity of [place] 4.2.7.2.686 [facility] [id number] [address] 2021-10-19 2021-10-19 Outpatient R BOSTON PATRICIA [facility] [id number] Univers 08:00:00 09:08:30 ity of [facility] 2021-10-19 2021-10-19 Routine [place] Patricia LASJ [place] 1.2.840.114 [id number] Univers 08:00:00 09:08:30 David ALEXANDER 350.1.13.10 i ty of Visit [facility]S 4.2.7.2.686 [facility] [id number] [address] 2021-10-18 2021-10-18 Deck Hand 2, Adc Lab [facility] 1.2.840.114 [id number] Univers 11:15:00 11:30:00 Visit [place] Patricia David CHACON 350.1.13.10 ity of [place].2.[place] [id number] Dc dical NAL 353 [facility] 2021-10-18 2021-10-18 Outpatient R BOSTON PATRICIA [facility] [id number] Univers 11:15:00 11:15:00 ity of [facility] 2021-10-18 2021-10-18 Routine Room, [facility] 1.2.840.1 [id number] Univers 10:00:00 10:15:00 [place] Patricia David [place] 350.1.13.10 ity of Visit [place] [id number] Dc dical NAL 134 [facility] 2021-10-18 2021-10-18 Telephone [facility] 1.2.840.114 [id number] Univers 00:00:00 00:00:00 Cam [place] 350.1.13.10 i ty of [place] 4[place]2.7.2.[place] [id number] Dc dickate NAL 134 [facility] 2021-10-17 2021-10-17 Outpatient P HARSHAD BOSTON [facility] [id number] Univers 11:55:00 13:25:00 ity of [facility] 2021-10-17 2021-10-17 [facility] [place] Patricia [facility] 1.2.840.114 [id number] Univers 11:55:00 13:25:00 Encounter Cam [place] 350.1.13.10 ity of [facility] [place] [id number] [address] 2021-10-17 2021-10-17 Telephone Harshad [facility] 1.2.840.114 [id number] Univers 00:00:00 00:00:00 Cam [place] 350.1.13.10 i ty of [place] [id number] Dc dical NAL 134 [facility] 2021-10-15 2021-10-15 Outpatient R HARSHAD [facility] [id number] Univers 10:00:00 11:09:07 ity of [facility] 2021-10-15 2021-10-15 Routine Room, [facility] 1.2.840.1 14 [id number] Univers 10:00:00 11:09:07 [place] Patricia OSWALDO 350.1.13.10 ity of Visit [place] [id number] Dc dical NAL 134 [facility] 2021-10-11 2021-10-11 Outpatient P KELSY GARCIA [facility] [id number] Univers 20:55:00 21:56:00 ity of [facility] 2021-10-11 2021-10-11 Hospital Kelsy Garcia [facility] 1.2.840.114 [id number] Univers 20:55:00 21:56:00 Encounter [place] 350.1.13.10 ity of [place] [id number] [facility] [address] 2021-10-11 2021-10-11 Outpatient R JUNITO [facility] [id number] Univers 10:00:00 11:01:52 PETER itdominique [facility] 2021-10-11 2021-10-11 Routine Room, [facility] 1.2.840.1 14 [id number] Univers 10:00:00 11:01:52 ChrismilviaPeter laguna [place] 350.1.13.10 ity of Visit [place] [phone] Dc dical NAL 134 [facility] 2021-10-11 2021-10-11 Orders Doctor CHINO 1.2.840.114 [id number] Univers 00:00:00 00:00:00 Only Unassigned, DAMIAN 350.1.13.10 ity of [place] [facility] 4.2.7.2.686 [place] [phone] [facility] [address] 2021-10-10 2021-10-10 Outpatient R ERNESTO [facility] [id number] Univers 09:00:00 09:00:00 CORWIN spencer o f [facility] 2021-10-08 2021-10-08 Outpatient R BOSTON PATRICIA [facility] [id number] Univers 11:00:00 12:05:01 ity [facility] 2021-10-08 2021-10-08 Routine Room, [facility] 1.2.840.1 14 [id number] Univers 11:00:00 12:05:01 [place] Patricia OSWALDO 350.1.13.10 ity of [place] [id number] Dc dical NAL [address] [place] [address] 2021-10-08 2021-10-08 Outpatient R [facility] [id number] Univers 11:00:00 11:00:00 ity [facility] 2021-10-04 2021-10-04 Routine Room, [facility] 1.2.840.1 14 [id number] Univers 11:00:00 12:13:58 [place] Patricia OSW[place]DO 350.1.13.10 ity of Visit [place] [phone] Dc dical NAL [address] [place] [address] 2021-10-04 2021-10-04 Outpatient R BOSTON PATRICIA [facility] [id number] Univers 11:00:00 12:13:58 ity of [facility] 2021-10-04 2021-10-04 Outpatient R BOSTON PATRICIA [facility] [id number] Univers 11:00:00 11:00:00 ity [facility] 2021-10-02 2021-10-02 Deck Hand Ultrasound, [facility] 1.2 .840.114 [id number] Univers 11:30:00 12:23:54 Visit Eden Wolfe 350.1 .13.10 ity of [place] [phone] Dc dical NAL [address] [place] [address] 2021-10-02 2021-10-02 Outpatient P [facility] [id number] Univers 11:30:00 11:30:00 ity of [facility] 2021-10-02 2021-10-02 Outpatient P [facility] [id number] Univers 11:30:00 11:30:00 ity of [facility] 2021-10-02 2021-10-02 Outpatient P KARLIE [facility] [id number] Univers 11:30:00 11:30:00 JILL it y of [place] [facility] 2021-10-01 2021-10-01 Routine Room, [facility] 1.2.840.1 14 [id number] Univers 11:00:00 12:33:54 Ernesto, Corwin [place] 350.1.13.10 ity of Visit Peter Wild 4.2.7.2.686 [place] PROFESSIO [phone] Dc dical NAL 134 [facility] 2021-10-01 2021-10-01 Outpatient R ERNESTO, [facility] [id number] Univers 08:40:00 09:19:44 CORWIN spencer o [facility] 2021-10-01 2021-10-01 Office Ernesto, [facility] 1..840.114 [id number] Univers 08:40:00 09:19:44 Visit Corwin CHACON 350.1.13.10 ity of [place] 4.2.7.2.686 [facility] s PROFESSIO [phone] Dc dical NAL 059 [facility] 2021-10-01 2021-10-01 Outpatient R ERNESTO, [facility] [id number] Univers 08:40:00 09:19:44 CORWIN spencer o f [facility] 2021-10-01 2021-10-01 Outpatient R ERNESTO, [facility] [id number] Univers 08:40:00 09:19:44 CORWIN robiny o f [facility] 2021-10-01 2021-10-01 Outpatient R ERNESTO, [facility] [id number] Univers 08:40:00 09:19:44 CORWIN sharday o f [facility] 2021-10-01 2021-10-01 Orders Doctor CHINO 1.2.840.114 [id number] Univers 00:00:00 00:00:00 Only Unassigned, DAMIAN 350.1.13.10 ity of [place] [facility] 4.2.7.2.686 Devante as [id number] [facility] [address] 2021-09-27 2021-09-27 Outpatient P BOSTON PATRICIA [facility] [id number] Univers 12:40:00 13:55:00 ity of [facility] 2021-09-27 2021-09-27 [facility] [place] Patricia [facility] 1.2.840.114 [id number] Univers 12:40:00 13:55:00 Encounter Suni Kowalski 350.1.13.10 ity of [place] 4.2.7.2.686 [facility] [id number] [address] 2021-09-27 2021-09-27 Outpatient R BOSTON PATRICIA [facility] [id number] Univers 11:00:00 12:22:02 ity of [facility] 2021-09-27 2021-09-27 Routine Room, [facility] 1.2.840.1 14 [id number] Univers 11:00:00 12:22:02 [place] Patricia OSWALDO 350.1.13.10 ity of [place] [phone] Dc dical NAL [address] BU[address] 2021-09-27 2021-09-27 Outpatient R [facility] [id number] Univers 11:00:00 11:00:00 ity of [facility] 2021-09-26 2021-09-26 Outpatient P [facility] [id number] Univers 21:04:00 23:20:00 SUNI spencer of [facility] 2021-09-26 2021-09-26 [facility] 1.2.840.114 [id number] Univers 21:04:00 23:20:00 Encounter Suni CHACON 350.1.13.10 ity of [place] 4.2.7.2.686 [facility] [id number] [address] 2021-09-26 2021-09-26 Orders Doctor CHINO 1.2.840.114 [id number] Univers 00:00:00 00:00:00 Only Unassigned, DAMIAN 350.1.13.10 ity of [place] [facility] 4.2.7.2.686 Devante as [phone] [facility] [address] 2021-09-25 2021-09-25 MATTI Garcia 1.2.587.054 [id number] Univers 00:00:00 00:00:00 Romina SALGADO 350.1.13.10 it y of HOSPITAL 4.2.7.2.686 [place] as [id number] [facility] [address] 2021-09-25 2021-09-25 Case [place] Patricia [facility] 1.2.156.282 [id number] Univers 00:00:00 00:00:00 Management Cam [place] 350.1.13.10 ity of [place] 4[place] [phone] Dc dic[address] 2021-09-24 2021-09-24 Outpatient R PRIETO [facility] [id number] Univers 12:30:00 13:12:19 BELINDA ity o f [facility] 2021-09-24 2021-09-24 Urgent Belinda Moreau [facility] 1.2.840. 114 [id number] Univers 12:30:00 12:50:00 Care [place] [facility] 350.1.13.10 ity of [place] 4.2.7.2.686 Devante as BERNARDO?BLEA [phone] [address] MEDICAL OFFICE BUILDING 2021-09-24 2021-09-24 Outpatient R BOSTON PATRICIA [facility] [id number] Univers 12:30:00 12:30:00 ity of [facility] 2021-09-24 2021-09-24 Routine Room, [facility] 1.2.840.1 14 [id number] Univers 11:00:00 12:21:04 [place] Patricia 350.1.13.10 ity of [facility] 4.[place] [id number] [address] 2021-09-20 2021-09-20 Outpatient R BOSTON PATRICIA [facility] [id number] Univers 10:00:00 11:26:27 ity of [facility] 2021-09-20 2021-09-20 Routine Room, [facility] 1.2.840.1 14 [id number] Univers 10:00:00 11:26:27 [place] David CHACON 350.1.13.10 ity of Visit [place] 4.[place]7.2.[place] [phone] Dc dical NAL [address] [place] [address] 2021-09-17 2021-09-17 Outpatient R PATRICIABOSTON [facility] [id number] Univers 10:00:00 11:48:14 ity of [facility] 2021-09-17 2021-09-17 Routine Room, [facility] 1.2.840.1 14 [id number] Univers 10:00:00 11:48:14 [place] David CHACON 350.1.13.10 ity of Visit [place] 4.2.7.2.[place] [id number] Dc dical NAL [address] [place] [address] 2021-09-14 2021-09-14 Telephone Christine Patriciaen [facility] 1.2.840.114 [id number] Univers 00:00:00 00:00:00 David CHACON 350.1.13.10 i ty of [place] 4.2.7.2.[place] [id number] Dc dical NAL [address] [place] [address] 2021-09-13 2021-09-13 Outpatient R HARSHAD BOSTON [facility] [id number] Univers 11:00:00 11:55:49 ity of [facility] 2021-09-13 2021-09-13 Routine Room, [facility] 1.2.840.1 14 [id number] Univers 11:00:00 11:55:49 [place] David CHACON 350.1.13.10 ity of [place] 4.2.7.2.[place] [id number] Dc dical NAL [address] [place] [address] 2021-09-13 2021-09-13 Orders Doctor CHINO 1.2.840.114 [id number] Univers 00:00:00 00:00:00 Only Unassigned, DAMIAN 350.1.13.10 ity of [place] [facility] 4.2.7.2.686 Devante as [id number] [facility] [address] 2021-09-10 2021-09-10 Outpatient R BOSTON PATRICIA [facility] [id number] Univers 11:00:00 12:46:22 ity of [facility] 2021-09-10 2021-09-10 Routine Room, [facility] 1.2.840.1 14 [id number] Univers 11:00:00 12:46:22 PatriciaBoston David CHACON 350.1.13.10 ity of [place] 4[place] [id number] Dc dical NAL [address] [place] [address] 2021-09-06 2021-09-06 Outpatient P SRIDHAR RABAGO [facility] [id number] Univers 13:30:00 13:59:29 SRIDHAR RABAGO ity of [facility] 2021-09-06 2021-09-06 Deck Hand 5, [facility] Us Room [facility] 1 .2.840.114 [id number] Univers 13:30:00 13:59:29 Visit [place] Patricia [facility] 350.1.13.10 ity of Sridhar Rabago [facility] 4.2.7.2.686 [place] [id number] [facility] [address] 2021-09-06 2021-09-06 Routine Room, [facility] 1.2.840.1 14 [id number] Univers 09:00:00 09:57:41 PatriciaBoston David CHACON 350.1.13.10 ity of [place] 4[place]7.2.[place] [id number] Dc dical NAL [address] [place] [address] 2021-09-05 2021-09-05 Outpatient R BOSTON PARTICIA [facility] [id number] Univers 15:00:00 15:00:00 ity of [facility] 2021-08-24 2021-08-24 Letter [place] [facility] 1.2.355.121 [id number] Univers 00:00:00 00:00:00 (Out) David CHACON 350.1.13.10 i ty of [place] 4.[place].7.2.[place] [phone] Dc dical NAL 134 [facility] 2021-08-23 2021-08-23 Orders Doctor MATTI 1.2.840.114 [id number] Univers 00:00:00 00:00:00 Only Unassigned, DAMIAN 350.1.13.10 ity of [place] [facility] 4.2.7.2.686 Devante as [id number] [facility] [address] 2021-08-22 2021-08-22 Outpatient R HARSHAD BOSTON [facility] [id number] Univers 15:30:00 17:03:10 ity of [facility] 2021-08-22 2021-08-22 Routine Harshad [facility] 1.2.311.674 [id number] Univers 15:30:00 17:03:10 David CHACON 350.1.13.10 ity of [place] 4[place]2.[place] [id number] Dc dic[address] 2021-08-10 2021-08-10 Deck Hand 5, [facility] Us Room UN[facility]ERS[facility] 1 .2.840.114 [id number] Univers 13:30:00 14:57:07 Visit Sridhar Rabago [facility] 350.1.13.10 ity of CL[place]ICS 4.2.7.2.[place] [id number] [facility] [address] 2021-08-10 2021-08-10 Outpatient P SRIDHAR RABAGO [facility] [id number] Univers 13:30:00 13:30:00 SRIDHAR RABAGO ity of [facility] 2021-08-10 2021-08-10 Outpatient P [facility] [id number] Univers 11:00:00 11:00:00 ity of [facility] 2021-08-08 2021-08-08 Outpatient R HARSHAD [facility] [id number] Univers 15:30:00 16:13:59 ity [facility] 2021-08-08 2021-08-08 Routine [place] [facility] 1.2.049.617 [id number] Univers 15:30:00 16:13:59 David CHACON 350.1.13.10 ity of [place] 4[place]7.2.[place] [id number] Dc dical NAL 134 [facility] 2021-08-08 2021-08-08 Deck Hand 2, [facility] Lab [facility] 1.2.840.114 [id number] Univers 15:00:00 15:03:52 Visit [place] Patricia OSWALDO 350.1.13.10 ity of [place] 4.2.7.2.[place] [id number] [facility] 353 [facility] 2021-08-08 2021-08-08 Letter [place] [facility] 1.2.326.420 [id number] Univers 00:00:00 00:00:00 (Out) David CHACON 350.1.13.10 i ty of [place] 4.2.7.2.[place] [id number] [facility] 134 [facility] 2021-08-08 2021-08-08 Orders Doctor MATTI 1.2.840.114 [id number] Univers 00:00:00 00:00:00 Only Unassigned, DAMIAN 350.1.13.10 ity of [place] [facility] 4.2.7.2.686 Devante [place] [id number] [address] 2021-08-02 2021-08-02 Outpatient R BOSTON PATRICIA [facility] [id number] Univers 15:00:00 15:00:00 ity of [facility] 2021-08-02 2021-08-02 Nurse Nurse, [facility] Women's Health [facility] 1.2.840.114 [id number] Univers 15:00:00 15:00:00 Visit [place] David CHACON 350.1.13.10 ity of [place] 4.2.7.2.[place] [phone] [facility] NAL 134 [facility] 2021-08-02 2021-08-02 Letter Nurse, [facility] 1.2.840.114 [id number] Univers 00:00:00 00:00:00 (Out) Women's [place] 350.1.13.10 i ty of Health [place] 4[place]7.2.[place] [id number] Dc dical NAL [address] [place] [address] 2021-08-02 2021-08-02 Telephone [place] [facility] 1.2.840.114 [id number] Univers 00:00:00 00:00:00 Cam [place] 350.1.13.10 i ty of [place] 4.2.7.2.[place] [id number] Dc dical NAL [address] [place] [address] 2021-07-25 2021-07-25 Outpatient R HARSHAD BOSTON [facility] [id number] Univers 16:15:00 17:30:13 ity [facility] 2021-07-25 2021-07-25 Routine Harshad [facility] 1.2.999.043 [id number] Univers 16:15:00 17:30:13 Cam [place] 350.1.13.10 ity of Visit [place] 4.2.7.2.[place] [id number] Dc dical NAL [address] [place] [address] 2021-07-25 2021-07-25 Letter [place] [facility] 1.2.156.186 [id number] Univers 00:00:00 00:00:00 (Out) Cam [place] 350.1.13.10 i ty of [place] 4.2.7.2.[place] [id number] Dc dical NAL [address] [place] [address] 2021-07-13 2021-07-13 Deck Hand 2, [facility] Us Room UNIVERSIT 1 .2.840.114 [id number] Univers 10:00:00 10:45:00 Visit Olvin Corral [facility] 350.1 .13.10 ity of CL[place] 4[place]2.7.2.[place] [id number] [address] 2021-07-13 2021-07-13 Outpatient P ELLIS [facility] [id number] Univers 10:00:00 10:00:00 OLVIN ity [facility] 2021-07-13 2021-07-13 Case [place] [facility] 1.2.825.766 [id number] Univers 00:00:00 00:00:00 Management Cam [place] 350.1.13.10 ity of [place] 4.2.7.2.[place] [id number] Dc dical NAL 134 [facility] 2021-07-04 2021-07-04 Outpatient P BOSTON PATRICIA [facility] [id number] Univers 14:33:00 17:55:00 ity of [facility] 2021-07-04 2021-07-04 Hospital [place] [facility] 1.2.840.114 [id number] Univers 14:33:00 17:55:00 Encounter Cam [place] 350.1.13.10 ity of [place].2.7.2.[place] [id number] [facility] [address] 2021-07-04 2021-07-04 Telephone [place] [facility] 1.2.840.114 [id number] Univers 00:00:00 00:00:00 Cam [place] 350.1.13.10 i ty of [place] 4.2.7.2.[place] [id number] Dc dical NAL 134 [facility] 2021-06-29 2021-06-29 Orders Doctor MATTI 1.2.840.114 [id number] Univers 00:00:00 00:00:00 Only Unassigned, DAMIAN 350.1.13.10 ity of [place] [facility] 4.2.7.2.686 Devante as [id number] [facility] [address] 2021-06-21 2021-06-21 Patient [place] [facility] 1.2.264.840 [id number] Univers 00:00:00 00:00:00 Secure Msg Cam [place] 350.1.13.10 ity of [place] 4.2.7.2.[place] [id number] Dc dical NAL 134 [facility] 2021-06-20 2021-06-20 Outpatient R BOSTON PATRICIA [facility] [id number] Univers 15:00:00 15:41:09 ity of [facility] 2021-06-20 2021-06-20 Routine [place] [facility] 1.2.360.269 [id number] Univers 15:00:00 15:41:09 Cam [place] 350.1.13.10 ity of Visit [place] 4.2.7.2.[place] [id number] Dc dical NAL 134 [facility] 2021-06-18 2021-06-18 Patient [place] [facility] 1.2.435.974 [id number] Univers 00:00:00 00:00:00 Secure Msg Cam [place] 350.1.13.10 ity of [place] 4.2.7.2.[place] [id number] Dc dical NAL 134 [facility] 2021-06-12 2021-06-12 Deck Hand 3, [facility] Us Room UNIVERSIT 1 .2.840.114 [id number] Univers 08:00:00 11:00:41 Visit Sridhar Rabago [facility] 350.1.13.10 ity of [place] 4[place].7.2.[place] [id number] [address] 2021-06-12 2021-06-12 Outpatient P [facility] [id number] Univers 08:00:00 08:00:00 ity of [facility] 2021-06-12 2021-06-12 Outpatient P SRIDHAR RABAGO [facility] [id number] Univers 08:00:00 08:00:00 SRIDHAR RABAGO ity [facility] 2021-06-04 2021-06-04 Deck Hand Valencia, [facility] Lab Main [facility] 1.2.8 40.114 [id number] Univers 16:51:54 17:06:54 Visit [place] PatriciaTON 350.1.13.10 ity of [place] 4.2.7.2.[place] [id number] Dc dical NAL 353 [facility] 2021-06-04 2021-06-04 Routine [place] [facility] 1.2.663.954 [id number] Univers 16:04:37 16:43:07 Cam [place] 350.1.13.10 ity of Visit [place] 4[place].2.[place] [id number] Dc dical NAL [address] [place] [address] 2021-06-04 2021-06-04 Outpatient R BOSTON PATRICIA [facility] [id number] Univers 16:00:00 16:43:07 ity of [facility] 2021-06-04 2021-06-04 Orders Doctor CHINO 1.2.840.114 [id number] Univers 00:00:00 00:00:00 Only Unassigned, DAMIAN 350.1.13.10 ity of [place] [facility] 4.2.7.2.686 Devante as [id number] [address] 2021-05-29 2021-05-29 Outpatient R BOSTON PATRICIA [facility] [id number] Univers 13:00:00 13:00:00 ity of [facility] 2021-05-01 2021-05-01 Routine Junito LASJ 1.2.643.379 [id number] Univers 10:47:19 11:14:56 Peter CHACON 350.1.13.10 ity of [place] [id number] Dc dical [address] 2021-05-01 2021-05-01 Outpatient R JUNITO [facility] [id number] Univers 10:30:00 11:14:56 PETER ity [facility] 2021-04-24 2021-04-24 Office [place] Patricia LASJ 1.2.980.925 [id number] Univers 14:32:29 15:11:42 Visit David Oswaldo 350.1.13.10 i ty of [place] [id number] Dc dical [address] 2021-04-24 2021-04-24 Outpatient R BOSTON PATRICIA [facility] [id number] Univers 14:30:00 15:11:42 ity of [facility] 2021-04-24 2021-04-24 Orders Doctor CHINO 1.2.840.114 [id number] Univers 00:00:00 00:00:00 Only Unassigned, DAMIAN 350.1.13.10 ity of [place] [facility] 4.2.7.2.686 Devante as [phone] [address] 2021-04-23 2021-04-23 Telephone [place] [facility] 1.2.840.114 [id number] Univers 00:00:00 00:00:00 Cam Leo [id number] i [id number] [phone] Dc dical nal 134 [facility] 2021-04-17 2021-04-17 Deck Hand 2, Adc Lab [facility] 1.2.840.114 [id number] Univers 15:45:55 16:00:55 Visit Harshad Bostondavonte [place] [id number] ity [id number] [phone] Dc dickate amaya 353 [facility] 2021-04-17 2021-04-17 Routine [place] Patricia [facility] [id number] Univers 14:04:36 15:41:34 David Yington 350.1.13.10 ity of [id number] [phone] Dc dical nal 134 [facility] 2021-04-17 2021-04-17 Outpatient R [place] [facility] [id number] Univers 14:00:00 15:41:34 ity of [facility] 2021-04-13 2021-04-13 Outpatient R [place] [facility] [id number] Univers 11:00:00 11:00:00 ity of [facility] 2021-04-13 2021-04-13 Telephone [place] [facility] 1.2.840.114 [id number] Univers 00:00:00 00:00:00 Cam Leo [id number] i [place] [phone] Dc dical nal 134 [facility] 2021-04-12 2021-04-12 Outpatient R [place] [facility] [id number] Univers 16:15:00 16:15:00 ity of [facility] 2021-04-11 2021-04-11 Telephone [place] [facility] 1.2.840.114 [id number] Univers 00:00:00 00:00:00 Cam Leo [id number] i [id number] [phone] Dc dical nal 134 [facility] 2021-04-10 2021-04-10 Deck Hand 2, Adc Lab [facility] 1.2.840.114 [id number] Univers 09:00:26 09:18:01 Visit [place] Patricia Oswaldo 350.1.13.10 it[place] of [place] [phone] Dc dical nal [address] [place] [address] 2021-04-10 2021-04-10 Outpatient R PATRICIA BOSTON [facility] [id number] Univers 09:00:00 09:18:01 ity [facility] 2021-04-06 2021-04-06 Deck Hand 2, Adc Lab [facility] 1.2.840.114 [id number] Univers 13:24:17 13:39:17 Visit [place] Patriciaton 350.1.13.10 it[place] of [place] [phone] Dc dical nal [address] [place] [address] 2021-04-06 2021-04-06 Outpatient R CHRISTINE PATRICIAEN [facility] [id number] Univers 13:15:00 13:15:00 ity of [facility] 2021-04-06 2021-04-06 Case Harshad [facility] 1.2.309.205 [id number] Univers 00:00:00 00:00:00 Management David Chacon 350.1.13.10 [place] of [place] [phone] Dc dical nal [address] [place] [address] 2021-04-06 2021-04-06 Case Ronaldo Wild 1.2.167.451 [id number] Univers 00:00:00 00:00:00 Management Peter Pediatric 350.1.13.10 it[place] of [place] [phone] [facility] [address] [facility] 2021-04-06 2021-04-06 Orders Doctor MATTI 1.2.840.114 [id number] Univers 00:00:00 00:00:00 Only Unassigned, DAMIAN 350.1.13.10 ity of [place] [facility] 4.2.7.2.686 [place] [phone] [facility] [address] 2021-04-05 2021-04-05 Outpatient R [facility] [id number] Univers 10:15:00 10:15:00 ity of [facility] 2021-03-30 2021-03-30 Telephone [place] Patricia [facility] 1.2.840.114 [id number] Univers 00:00:00 00:00:00 Cam Oswaldo 350.1.13.10 i [place] [phone] Dc dical [address] 2021-03-16 2021-03-16 Routine Harshad [place] [facility] 1.2.840.114 [id number] Univers 10:53:52 11:41:15 Cam Fernando 350.1.13.10 i ty of [facility] [place] [phone] [address] 2021-03-16 2021-03-16 Outpatient R BOSTON PATRICIA [facility] [id number] Univers 10:45:00 10:45:00 ity of [facility] 2021-03-09 2021-03-09 [facility] [place] [facility] 1.2.840.114 [id number] Univers 13:00:00 23:59:00 Encounter Cam Oswaldo 350.1.13.10 ity of [place] [phone] [facility] [address] 2021-03-09 2021-03-09 Hospital [place] [facility] 1.2.840.114 [id number] Univers 13:00:00 23:59:00 Encounter Cam Leo 350.1.13.10 it[place] of [place] [phone] [facility] [address] 2021-03-09 2021-03-09 Outpatient R BOSTON PATRICIA [facility] [id number] Univers 00:00:00 00:00:00 ity of [facility] 2021-03-03 2021-03-03 Outpatient R [facility] [id number] Univers 14:00:00 14:00:00 ity of [facility] 2021-03-03 2021-03-03 Orders Doctor MATTI 1.2.840.114 [id number] Univers 00:00:00 00:00:00 Only Unassigned, DAMIAN 350.1.13.10 ity of [place] [facility] 4.2.7.2.686 [place] [phone] [facility] [address] 2021-03-03 2021-03-03 Orders Doctor AMTTI 1.2.840.114 [id number] Univers 00:00:00 00:00:00 Only Unassigned, DAMIAN 350.1.13.10 ity of [place] [facility] 4.2.7.2.686 [place] [phone] [address] 2021-03-02 2021-03-02 Case [place] Patricia [facility] 1.2.072.562 [id number] Univers 00:00:00 00:00:00 Management Cam Leo 350.1.13.10 [place] [phone] Dc dical nal [address] [facility] 2021-03-02 2021-03-02 Case [place] Patricia [facility] 1.2.848.326 [id number] Univers 00:00:00 00:00:00 Management Cam Leo 350.1.13.10 it[place] of [place] [phone] Dc dical nal 134 [facility] 2021-03-01 2021-03-01 Deck Hand 2, Adc Lab [facility] 1.2.840.114 [id number] Univers 16:00:05 16:15:05 Visit Patricia, [place] Cam Leo 350.1.13.10 it[place] of [place] [phone] Dc dical nal [address] [facility] 2021-03-01 2021-03-01 Deck Hand 2, Adc Lab [facility] 1.2.840.114 [id number] Univers 16:00:05 16:15:05 Visit [place] Patriciaton 350.1.13.10 it[place] of [place] [phone] Dc dical nal [address] [place] [address] 2021-03-01 2021-03-01 Outpatient R [facility] [id number] Univers 16:00:00 16:00:00 ity of [facility] 2021-03-01 2021-03-01 Patient [place] [facility] 1.2.337.626 [id number] Univers 00:00:00 00:00:00 Secure Msg Cam Leo 350.1.13.10 ity of [place] [phone] Dc dical nal [address] [place] [address] 2021-03-01 2021-03-01 Patient [place] [facility] 1.2.758.739 [id number] Univers 00:00:00 00:00:00 Secure Msg Cam Leo 350.1.13.10 it[place] of [place] [phone] Dc dical nal [address] [place] [address] 2021-02-28 2021-02-28 Patient [place] [facility] 1.2.141.639 [id number] Univers 00:00:00 00:00:00 Secure Msg Cam Leo 350.1.13.10 it[place] of [place] [phone] Dc dical nal [address] [place] [address] 2021-02-28 2021-02-28 Patient [place] [facility] 1.2.976.856 [id number] Univers 00:00:00 00:00:00 Secure Msg Cam Leo 350.1.13.10 it[place] of [place] [phone] Dc dical nal 134 [facility] 2021-02-27 2021-02-27 Deck Hand 2, Adc Lab [facility] 1.2.840.114 [id number] Univers 15:19:30 15:34:30 Visit [place] Patricia Leo 350.1.13.10 it[place] of [place] [phone] Dc dical nal [address] [facility] 2021-02-27 2021-02-27 Deck Hand 2, Adc Lab [facility] 1.2.840.114 [id number] Univers 15:19:30 15:34:30 Visit [place] Patricia Leo 350.1.13.10 it[place] of [place] [phone] Dc dical nal 353 [facility] 2021-02-27 2021-02-27 Initial [place] [facility] 1.2.941.757 [id number] Univers 13:56:22 15:17:32 Cam Leo 350.1.13.10 ity of [place] [phone] Dc dical nal 134 [facility] 2021-02-27 2021-02-27 Initial [place] [facility] 1.2.375.257 [id number] Univers 13:56:22 15:17:32 Cam Leo 350.1.13.10 ity of [place] [phone] Dc dical nal 134 [facility] 2021-02-27 2021-02-27 Outpatient R BOSTON PATRICIA [facility] [id number] Univers 14:00:00 14:00:00 ity of [facility] 2020-11-06 2020-11-06 Outpatient R BOSTON PATRICIA [facility] [id number] Univers 10:30:00 10:30:00 ity of [facility] 2020-10-28 2020-10-28 Outpatient [facility] [id number] Univers 10:40:00 10:40:00 ity of [facility] 2020-10-09 2020-10-09 Outpatient R PATRICIACHRISTINEEN [facility] [id number] Univers 08:00:00 08:00:00 ity of [facility] 2020-10-07 2020-10-07 Outpatient [facility] [id number] Univers 10:35:00 10:35:00 ity of [facility] 2020-09-18 2020-09-18 [facility] 1.2.840.114 [id number] Univers 00:00:00 00:00:00 Outreach José Miguel PRIMARY 350.1.13.10 i ty of [facility] [place]7.2.[place] [phone] Dc dical [address] 2020-09-14 2020-09-14 Office Harshad [facility] 1.2.737.956 [id number] Univers 08:45:42 09:29:55 Visit David Chacon 350.1.13.10 i ty of [place] [phone] Dc dical nal 134 [facility] 2020-09-14 2020-09-14 Outpatient R BOSTON PATRICIA [facility] [id number] Univers 08:30:00 08:30:00 ity of [facility] 2020-09-14 2020-09-14 Orders Doctor MATTI 1.2.840.114 [id number] Univers 00:00:00 00:00:00 Only Unassigned, DAMINA 350.1.13.10 ity of [place] [facility] 4.2.7.2.686 [place] [phone] [facility] [address] 2020-08-17 2020-08-17 [facility] 1.2.840.114 [id number] Univers 15:00:00 23:59:00 Encounter Peter Chacon 350.1.13.10 it[place] of [place] [phone] [facility] [address] 2020-08-17 2020-08-17 Outpatient R BOSTON PATRICIA [facility] [id number] Univers 15:45:00 15:45:00 ity [facility] 2020-08-17 2020-08-17 Orders Doctor MATTI 1.2.840.114 [id number] Univers 00:00:00 00:00:00 Only Unassigned, DAMIAN 350.1.13.10 [facility] 4.2.7.2.686 [place] [phone] [address] 2020-08-08 2020-08-08 Outpatient R JUNITO [facility] [id number] Univers 13:30:00 13:30:00 PETER spencer [facility] 2020-05-10 2020-05-10 [facility] [id number] Univers 15:00:00 15:00:00 PETER tj [facility] 2019-12-20 2019-12-20 Outpatient R BOSTON PATRICIA [facility] [id number] Univers 15:00:00 15:00:00 ity [facility] 2019-11-26 2019-11-26 Outpatient R JUNITO [facility] [id number] Univers 09:00:00 09:00:00 PETER [facility] 2019-11-19 2019-11-19 Office [facility] 1.2.840.114 [id number] Univers 07:57:18 10:00:47 Visit Suni Chacon 350.1.13.10 ity [facility] [place] [phone] Dc dical [address] 2019-11-19 2019-11-19 Outpatient R TESSA [facility] [id number] Univers 09:00:00 09:00:00 SUNI spencer [facility] 2019-11-18 2019-11-18 Telephone Harshad [facility] 1.2.840.114 [id number] Univers 00:00:00 00:00:00 David Chacon 350.1.13.10 i ty [place] [phone] Dc dical nal [address] [place] [address] 2019-11-17 2019-11-17 Patient [place] Patricia [facility] 1..238.046 [id number] Univers 00:00:00 00:00:00 Secure Msg David Leo 350.1.13.10 ity of [place] [phone] [address] 2019-11-16 2019-11-16 Office Harshad [facility] 1.2.751.322 [id number] Univers 15:03:41 15:58:14 Visit David Chacon 350.1.13.10 i ty [place].2.[place] [phone] [address] 2019-11-16 2019-11-16 Outpatient R HARSHAD [facility] [id number] Univers 15:00:00 15:00:00 ity of [facility] 2019-11-16 2019-11-16 Orders Doctor MATTI 1.2.840.114 [id number] Univers 00:00:00 00:00:00 Only Unassigned, DAMIAN 350.1.13.10 [facility] 4.2.7.2.686 [place] [phone] [address] 2019-11-08 2019-11-08 Telemedici Peter Wild [facility] 1.2.840 .114 [id number] Univers 08:17:42 15:04:32 ne Visit [place] Patricia Oswaldo 350.1.13.10 ity of [place] 4[place] [phone] [address] 2019-11-08 2019-11-08 Outpatient R HARSHAD BOSTON [facility] [id number] Univers 13:30:00 13:30:00 ity of [facility] 2019-11-08 2019-11-08 Outpatient R HARSHAD [facility] [id number] Univers 11:30:00 11:30:00 ity of [facility] 2019-10-14 2019-10-16 [facility] Harshad [facility] 1.2.840.114 [id number] Univers 14:07:50 11:16:00 Encounter David Chacon 350.1.13.10 ity of [place] [phone] [facility] [address] 2019-10-14 2019-10-14 Routine [place] [facility] 1.2.616.823 [id number] Univers 13:14:58 13:53:25 Cam Leo 350.1.13.10 ity of [place]2.[place] [phone] Dc dical nal 134 [facility] 2019-10-14 2019-10-14 Outpatient R BOSTON PATRICIA [facility] [id number] Univers 13:00:00 13:00:00 ity of [facility] 2019-10-07 2019-10-07 [facility] 1.2.824.187 [id number] Univers 13:09:14 13:56:28 Cam Leo 350.1.13.10 ity of [place]2.[place] [phone] Dc dical nal 134 [facility] 2019-10-07 2019-10-07 Outpatient R BOSTON PATRICIA [facility] [id number] Univers 13:00:00 13:00:00 ity of [facility] 2019-10-07 2019-10-07 Orders Doctor MATTI 1.2.840.114 [id number] Univers 00:00:00 00:00:00 Only Unassigned, DAMIAN 350.1.13.10 ity of [place] [facility] 4.2.7.2.686 [place] [phone] [facility] [address] 2019-10-06 2019-10-06 Deck Hand 2, Adc Lab [facility] 1.2.840.114 [id number] Univers 11:52:43 12:07:43 Visit [place] Patriciaton 350.1.13.10 it[place] 4[place].7.2.[place] [phone] Dc dical nal 353 [facility] 2019-10-06 2019-10-06 Outpatient R [facility] [id number] Univers 11:30:00 11:30:00 ity of [facility] 2019-10-06 2019-10-06 Case [place] Patricia [facility] 1.2.078.273 [id number] Univers 00:00:00 00:00:00 Management David Chacon 350.1.13.10 ity of [place]2.[place] [phone] Dc dical nal 134 [facility] 2019-10-06 2019-10-06 Orders Doctor MATTI 1.2.840.114 [id number] Univers 00:00:00 00:00:00 Only Unassigned, DAMIAN 350.1.13.10 ity of [place] [facility] 4.2.7.2.686 [place] [phone] [facility] [address] 2019-10-01 2019-10-01 [facility] 1.2.840.114 [id number] Univers 18:04:00 19:43:00 Encounter Suni Chacon 350.1.13.10 it[place] [phone] [facility] [address] 2019-10-01 2019-10-01 Telephone [facility] 1.2.642.566 [id number] Univers 00:00:00 00:00:00 Monroe Chacon 350.1.13.10 i ty [place] 4[place].2.[place] [phone] Dc dical nal [address] [place] [address] 2019-09-23 2019-09-23 Outpatient R HARSHAD [facility] [id number] Univers 13:45:00 13:45:00 ity of [facility] 2019-09-23 2019-09-23 Telemedici Harshad [facility] 1.2.840.114 [id number] Univers 08:02:33 08:17:33 ne Visit David Chacon 350.1.13.10 ity of [place] 4[place].7.2.[place] [phone] Dc dical nal [address] [place] [address] 2019-09-13 2019-09-13 Outpatient R HARSHAD [facility] [id number] Univers 15:45:00 15:45:00 ity of [facility] 2019-09-13 2019-09-13 [facility] 1.2.840.114 [id number] Univers 00:00:00 00:00:00 Cam Leo 350.1.13.10 i ty [place].2.[place] [phone] [facility] [address] [facility] 2019-09-09 2019-09-12 Hospital [place] 1.2.840.114 [id number] Univers 15:34:00 10:51:00 Encounter Dave Tobias 350.1.13.10 ity of HOSPITAL 4.2.7.2.686 [place] [phone] [facility] [address] 2019-09-09 2019-09-[address] [facility] 1.2.600.313 [id number] Univers 13:57:24 15:22:24 Cam Leo 350.1.13.10 ity of [place] 4[place].2.[place] [phone] [address] 2019-09-09 2019-09-09 Outpatient R [facility] [id number] Univers 13:45:00 13:45:00 ity of [facility] 2019-09-09 2019-09-09 Orders Doctor MATTI 1.2.840.114 [id number] Univers 00:00:00 00:00:00 Only Unassigned, DAMIAN 350.1.13.10 ity of [place] [facility] 4.2.7.2.686 [place] as [phone] [facility] [address] 2019-09-08 2019-09-[address] [facility] 1.2.840.114 [id number] Univers 00:00:00 00:00:00 Cam Leo 350.1.13.10 i ty [place].2.[place] [phone] [address] 2019-09-06 2019-09-06 Hospital Harshad [facility] 1.2.840.114 [id number] Univers 10:31:00 15:10:00 Encounter Cam Leo 350.1.13.10 ity of [place] 4[place].2.[place] [phone] [facility] [address] 2019-09-06 2019-09-06 Telephone [place] Patricia [facility] 1.2.840.114 [id number] Univers 00:00:00 00:00:00 Cam Leo 350.1.13.10 i ty [place] 4[place].7.2.[place] [phone] [address] 2019-08-31 2019-08-31 Outpatient R BOSTON PATRICIA [facility] [id number] Univers 11:30:00 11:30:00 ity of [facility] 2019-08-31 2019-08-31 Telephone [place] Patricia [facility] 1.2.840.114 [id number] Univers 00:00:00 00:00:00 Cam Leo 350.1.13.10 i ty of [place] 4.2.7.2.[place] [phone] [address] 2019-08-30 2019-08-30 Routine [place] [facility] 1.2.475.549 [id number] Univers 17:18:08 17:22:44 Cam Leo 350.1.13.10 ity of [place] 4.[place].7.2.[place] [phone] [address] 2019-08-30 2019-08-30 Routine [place] [facility] 1.2.541.256 [id number] Univers 16:00:00 16:15:00 Cam Leo 350.1.13.10 ity [place] 4.[place].7.2.[place] [phone] [address] 2019-08-30 2019-08-30 Outpatient R BOSTON PATRICIA [facility] [id number] Univers 16:00:00 16:00:00 ity of [facility] 2019-08-30 2019-08-30 Outpatient R BOSTON PATRICIA [facility] [id number] Univers 15:45:00 15:45:00 ity of [facility] 2019-08-20 2019-08-20 Case [place] [facility] 1.2.069.112 [id number] Univers 00:00:00 00:00:00 Management Cam Leo 350.1.13.10 ity of [place].7.2.[place] [phone] Dc dical [address] 2019-08-19 2019-08-19 Patient [place] [facility] 1.2.397.581 [id number] Univers 00:00:00 00:00:00 Secure Msg Cam Leo 350.1.13.10 ity of [place] 4[place].2.[place] [phone] [address] 2019-08-17 2019-08-17 Outpatient P BOSTON PATRICIA [facility] CEDRIC [id number] Univers 11:04:00 15:00:00 ity of [facility] 2019-08-17 2019-08-17 [facility] [place] [facility] 1.2.840.114 [id number] Univers 11:04:00 15:00:00 Encounter Cam Leo 350.1.13.10 ity of [place].2.[place] [phone] [address] 2019-08-17 2019-08-17 Telephone [place] [facility] 1.2.840.114 [id number] Univers 00:00:00 00:00:00 Cam Leo 350.1.13.10 i ty of [place] 4[place].7.2.[place] [phone] Dc dical nal [address] [place] [address] 2019-08-17 2019-08-17 Case [place] [facility] 1.2.167.279 [id number] Univers 00:00:00 00:00:00 Management Cam Leo 350.1.13.10 ity of [place] 4.2.7.2.[place] [phone] Dc dical nal [address] [place] [address] 2019-08-11 2019-08-11 Telephone [place] [facility] 1.2.840.114 [id number] Univers 00:00:00 00:00:00 Cam Leo 350.1.13.10 i ty of [place] 4.[place].7.2.[place] [phone] Dc dical [address] 2019-08-09 2019-08-09 Patient Junito [facility] 1.2.849.449 [id number] Univers 00:00:00 00:00:00 Secure Msg Peter Leo 350.1.13.10 ity of [place].2.[place] [phone] [address] 2019-08-05 2019-08-05 Deck Hand Valencia, Adc Lab Main [facility] 1.2.8 40.114 [id number] Univers 10:14:51 10:29:51 Visit [place] Oswaldo 350.1.13.10 ity of [place].7.2.[place] [phone] [address] 2019-08-05 2019-08-05 Outpatient R HARSHAD [facility] [id number] Univers 10:15:00 10:15:00 ity of [facility] 2019-08-04 2019-08-04 Deck Hand Valencia, Adc Lab Main [facility] 1.2.8 40.114 [id number] Univers 10:24:11 10:39:11 Visit [place] Oswaldo 350.1.13.10 ity of [place].2.[place] [phone] [address] 2019-08-04 2019-08-04 Outpatient R HARSHAD [facility] [id number] Univers 10:30:00 10:30:00 ity of [facility] 2019-08-04 2019-08-04 Case Junito [facility] 1.2.014.069 [id number] Univers 00:00:00 00:00:00 Management Peter Oswadlo 350.1.13.10 ity [place] [phone] [address] 2019-08-03 2019-08-03 Routine [facility]arshad [facility] 1.2.180.633 [id number] Univers 15:56:03 16:38:28 David Chacon 350.1.13.10 ity of [place].2.[place] [phone] Dc dical [address] 2019-08-03 2019-08-03 Orders Doctor MATTI 1.2.840.114 [id number] Univers 00:00:00 00:00:00 Only Unassigned, DAMIAN 350.1.13.10 ity of [place] [facility] 4.2.7.2.686 Devante as [phone] [address] 2019-07-21 2019-07-21 Telephone [place] [facility] 1.2.840.114 [id number] Univers 00:00:00 00:00:00 Cam Leo 350.1.13.10 i ty [place] [phone] Dc dical nal [address] [place] [address] 2019-07-13 2019-07-13 Patient [place] [facility] 1.2.213.003 [id number] Univers 00:00:00 00:00:00 Secure Msg Cam Leo 350.1.13.10 ity of [place].2.[place] [phone] Dc dical [place]al [address] [place] [address] 2019-07-08 2019-07-08 Patient [place] [facility] [id number] [employer] 00:00:00 00:00:00 Secure Msg Cam Leo [id number] [place] [phone] Dc dical nal [address] [place] [address] 2019-07-05 2019-07-05 Outpatient R [place] PATRICIA [facility] [id number] Univers 15:45:00 17:11:01 ity of [facility] 2019-06-14 2019-06-14 Patient [place] Patricia [facility] [id number] [employer] 00:00:00 00:00:00 Secure Msg Cam Leo [id number] [place] [phone] Dc dic[address] 2019-04-26 2019-04-26 Out[facility] [id number] [facility] 13:45:00 14:21:30 ity of [facility] 2019-04-13 2019-04-13 Outpatient R OMARI MYLES [facility] [id number] Univers 13:30:00 13:30:[address] [facility] 2019-04-09 2019-04-09 [facility] [id number] Univers 11:00:00 12:00:09 SRIDHAR RABAGO [facility] 2019-03-09 2019-03-09 Letter [place] [facility] [id number] Univers 00:00:00 00:00:00 (Out) Cam Oswaldo 350.1.13.10 [place] [phone] [address] 2019-03-08 2019-03-08 Initial PatriciaBoston [facility] [id number] [employer] 14:01:55 15:07:29 Cam Leo 350.1.13.10 [place] [phone] [address] 2019-03-05 2019-03-05 Orders Doctor MATTI [id number] [employer] 00:00:00 00:00:00 Only Unassigned, DAMIAN [id number] it[facility] of [place] [facility] [id number] Devante as [phone] [address] Results Test Description Test Time Test Comments Results Result Comments Source POCT Test 2022-12-09 13:48:00 Test Item Value Reference Range Interpretation Comme nts POCT PREG (test code = 1605) Negative On board controls acceptable with C Line (test code = 3574) Yes POCT PREG LOT # (test code = 3575) [id number] PO[facility]REG [facility] (test code = 3576) [id number] 13:48:00 Test Item Value Reference Range Interpretation Comments POCT PREG (test code = 1605) Negative On board controls acceptable with C Yes Line (test code = 3574) POCT PREG LOT # (test code = 3575) [id number] POCT PREG TEST DATE (test 02/05/24 code = 3576) [facility]
[2023-01-31] MEDS ORDERED: NA CHLORIDE 0.9% 1,000 ML ONE (13:04)
[2023-01-31] MEDS ORDERED: KETOROLAC 30 MG/ML INJ ONE (13:04)
[2023-01-31] MEDS ORDERED: MORPHINE 4 MG/ML SYR ONE (13:04)
[2023-01-31] MEDS ORDERED: ONDANSETRON 4 MG/2 ML VIAL ONE (13:04)
[2023-01-31 13:21] LABS: Absolute Lymphocytes (CBC) 1.7 K/uL (0.7-4.9); Hematocrit 42.6 % (36.0-45.0); Lymphocytes % 14.4 % (15.3-44.8); MCV 93.1 fL (80-100); MPV 9.1 fL (7.6-11.3); RBC Red Blood Cell Count 4.58 M/uL (3.86-4.86)
[2023-01-31 13:37] LABS: Potassium 3.8 mEq/L (3.5-5.1)
[2023-01-31 14:14] LABS: Specific Gravity 1.022 (1.005-1.030)
[2023-01-31 14:16] LABS: Specific Gravity 1.022 (1.005-1.030); Urine Bacteria <20 /HPF (<20); Urine Bilirubin NEGATIVE (Negative); Urine Blood Negative (Negative); Urine Clarity Extremely Turbid (Clear); Urine Color Light-Yellow (Yellow); Urine Crystals Unidentified Few /HPF (None Seen); Urine Glucose NEGATIVE (Negative); Urine Mucus 1+ /HPF (None Seen); Urine Protein NEGATIVE (Negative); Urine RBC <5 /HPF (None Seen); Urine Urobilinogen Normal (Normal); Urine pH 5.5 (5.0-7.0)
--- NOTE | 2023-01-31 14:53 | RAD REPORT ---
EXAM DESCRIPTION: CT - Stone Protocol - 01/31/2023 2:31 pm CLINICAL HISTORY: Abdominal pain. COMPARISON: None. TECHNIQUE: Computed axial tomography of the abdomen pelvis was obtained without oral or IV contrast. Lack of IV and oral contrast limits evaluation of solid organs, appendix, bowel, and vessels. Lyman l reformatted images were obtained and reviewed. All CT scans are performed using dose optimization technique as appropriate and may include automated exposure control or mA/KV adjustment according to patient size. FINDINGS: Tiny right renal calculus. No hydronephrosis. Ureteral calculus is not seen. No left renal calculus. No bladder calculus. Fatty liver. Liver appears borderline enlarged. Spleen, pancreas and adrenals grossly normal There is no evidence of diverticulitis. IUD in place. No adnexal mass Tiny right pleural effusion IMPRESSION: Tiny nonobstructing right renal calculus Fatty infiltration liver
--- NOTE | 2023-01-31 14:54 | RAD REPORT ---
EXAM DESCRIPTION: [place] Single View01/31/2023 1:24 pm CLINICAL HISTORY: sob COMPARISON: none FINDINGS: Tiny right pleural effusion The lungs appear clear of acute infiltrate. The heart is normal size
--- NOTE | 2023-01-31 15:35 | ER ---
Nurse's Notes [facility] Name: Dalila Summers Age: 37 yrs Sex: Female : 1985 Arrival Date: 01/31/2023 Time: 12:48 Bed 13 Private MD: Diagnosis: Back pain Presentation: 01/31 12:49 Chief complaint: EMS states: sudden onset lower back pain. has had this issue for x2 kc6 weeks. Coronavirus screen: At this time, the client does not indicate any symptoms associated with coronavirus-19. Ebola Screen: No symptoms or risks identified at this time. Initial Sepsis Screen: Does the patient meet any 2 criteria? No. Patient's initial sepsis screen is negative. Does the patient have a suspected source of infection? No. Patient's initial sepsis screen is negative. Risk Assessment: Do you want to hurt yourself or someone else? Patient reports no desire to harm self or others. Onset of symptoms was January 31, 2023. 12:49 Method Of Arrival: EMS: [facility] 12:49 Acuity: SHANT 3 kc6 Triage Assessment: 12:50 General: Appears in no apparent distress. uncomfortable, Behavior is calm, cooperative, kc6 appropriate for age. Pain: Complains of pain in back Pain currently is 10 out of 10 on a pain scale. Pain began suddenly. EENT: No signs and/or symptoms were reported regarding the EENT system. Neuro: Level of Consciousness is awake, alert, obeys commands, Oriented to person, place, time, situation, Appropriate for age. Cardiovascular: Capillary refill < 3 seconds. Respiratory: Airway is patent Trachea midline Respiratory effort is even, unlabored, Respiratory pattern is regular, symmetrical. GI: No signs and/or symptoms were reported involving the gastrointestinal system. : No signs and/or symptoms were reported regarding the genitourinary system. Derm: No signs and/or symptoms reported regarding the dermatologic system. Skin is intact, is healthy with good turgor, Skin is pink, warm \T\ dry. Musculoskeletal: No signs and/or symptoms reported regarding the musculoskeletal system. Circulation, motion, and sensation intact. Capillary refill < 3 seconds, Range of motion: intact in all extremities. 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 Flu vaccine is up to date. - Social history:: Smoking status: Patient/guardian denies using tobacco. Screenin:52 [facility] ED Fall Risk Assessment (Adult) History of falling in the last 3 months, kc6 including since admission No falls in past 3 months (0 pts) Confusion or Disorientation No (0 pts) Intoxicated or Sedated No (0 pts) Impaired Gait No (0 pts) Mobility Assist Device Used No (0 pt) Altered Elimination No (0 pt) Score/Fall Risk Level 0 - 2 = Low Risk. Abuse screen: Denies threats or abuse. Denies injuries from another. Nutritional screening: No deficits noted. Tuberculosis screening: No symptoms or risk factors identified. Assessment: 12:52 Reassessment: please see triage assessment. kc6 13:53 Reassessment: Patient appears in no apparent distress at this time. No changes from [facility] previously documented assessment. Patient and/or family updated on plan of care and expected duration. Pain level reassessed. Patient is alert, oriented x 3, equal unlabored respirations, skin warm/dry/pink. 14:59 Reassessment: Patient appears in no apparent distress at this time. No changes from [facility] previously documented assessment. Patient and/or family updated on plan of care and expected duration. Pain level reassessed. Patient is alert, oriented x 3, equal unlabored respirations, skin warm/dry/pink. 15:45 Reassessment: d/c pending med f/u and IV fluid completion. 6 16:00 Reassessment: Patient appears in no apparent distress at this time. No changes from [facility] previously documented assessment. Patient and/or family updated on plan of care and expected duration. Pain level reassessed. Patient is alert, oriented x 3, equal unlabored respirations, skin warm/dry/pink. Vital Signs: 12:49 BP 142 / 93; Pulse 98; Resp 20 S; Temp 97.9(O); Pulse Ox 98% on R/A; Weight 83.91 kg kc6 (R); Height 5 ft. 3 in. (R); Pain 10/10; 13:53 BP 134 / 101; Pulse 84; Resp 19 S; Pulse Ox 100% on R/A; kc6 14:59 BP 128 / 84; Pulse 95; Resp 18 S; Pulse Ox 94% on R/A; kc6 16:13 BP 120 / 94; Pulse 77; Resp 17 S; Pulse Ox 99% on R/A; kc6 12:49 Body Mass Index 32.77 (83.91 kg, 160.02 cm) kc6 12:49 Pain Scale: Adult kc6 ED Course: 12:49 Patient arrived in ED. kc6 12:49 Elaine King FNP-C [facility]. kb 12:49 Kyle Flores MD is Attending Physician. kb 12:50 Triage completed. kc6 12:50 Arm band placed on. kc6 12:52 Patient has correct armband on for positive identification. Bed in low position. Call kc6 light in reach. Side rails up X2. 12:53 Carrie Decker, RN is Primary Nurse. kc6 13:08 Inserted saline lock: 22 gauge in right antecubital area, using aseptic technique. kc6 Blood collected. 13:25 Chest Single View XRAY In Process Unspecified. EDMS 14:33 CT Stone Protocol In Process Unspecified. EDMS 15:25 US Abdomen Limited In Process Unspecified. EDMS 16:50 No provider procedures requiring assistance completed. IV discontinued, intact, kc6 bleeding controlled, No redness/swelling at site. Pressure dressing applied. Administered Medications: 13:08 Drug: NS 0.9% IV 1000 ml Route: IV; Rate: 1000 ml; Site: right antecubital; kc6 16:49 Follow up: IV Status: Completed infusion; IV Intake: 700ml kc6 13:08 Drug: Ketorolac IVP 15 mg Route: IVP; Site: right antecubital; kc6 14:56 Follow up: Response: No adverse reaction; Pain is decreased kc6 13:08 Drug: morphine IVP or IV 4 mg Route: IVP; Infused Over: 4 mins; Site: right antecubital;kc6 14:56 Follow up: Response: No adverse reaction; Pain is decreased; RASS: Alert and Calm (0) kc6 13:08 Drug: Ondansetron IVP 4 mg Route: IVP; Site: right antecubital; kc6 14:57 Follow up: Response: No adverse reaction kc6 16:12 Drug: [place] PO 10 mg-325 mg 1 tabs Route: PO; kc6 16:35 Follow up: Response: No adverse reaction; Pain is decreased; RASS: Alert and Calm (0) kc6 Medication: 16:50 VIS not applicable for this client. kc6 Intake: 16:49 IV: 700ml; Total: 700ml. kc6 Outcome: 15:35 Discharge ordered by . mariangel 16:50 Discharged to home via wheelchair, with significant other. kc6 16:50 Condition: improved 16:50 Discharge instructions given to patient, Instructed on discharge instructions, follow up and referral plans. medication usage, Demonstrated understanding of instructions, follow-up care, medications, Prescriptions given X 2. 16:50 Patient left the ED. kc6 Signatures: Dispatcher [employer] Elaine Hall, RESEARCH LIBRARIAN-Lorie MARTINEZP-Carrie Solitario, RN RN kc6
--- NOTE | 2023-01-31 15:35 | EDPHYS ---
Physician Documentation [facility] Name: Dalila Summers Age: 37 yrs Sex: Female : 1985 Arrival Date: 01/31/2023 Time: 12:48 Bed 13 Private MD: ED Physician Kyle Flores HPI: 01/31 15:24 This 37 yrs old Female presents to ER via EMS with complaints of Back Pain. kb 15:33 The patient presents with pain that is acute. kb 15:33 The patient has not experienced similar symptoms in the past. The patient has not kb recently seen a physician. Patient reports right back pain that has been intermittent for the last 2 to 3 weeks. Denies injury or trauma. Denies urinary symptoms, nausea, vomiting, diarrhea, fever. States pain got worse today prompting ER visit. Reports spasms to the back making it painful to take a deep breath.. 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 Flu vaccine is up to date. - Social history:: Smoking status: Patient/guardian denies using tobacco. ROS: 15:22 Constitutional: Negative for fever, chills, and weight loss. kb 15:22 Respiratory: Positive for shortness of breath. 15:22 Back: Positive for flank pain, on the right, of the right flank. 15:22 All other systems are negative. Exam: 15:24 Constitutional: This is a well developed, well nourished patient who is awake, alert, kb and in no acute distress. Head/Face: Normocephalic, atraumatic. ENT: Moist Mucous membranes Cardiovascular: Regular rate and rhythm with a normal S1 and S2. No gallops, murmurs, or rubs. No pulse deficits. Respiratory: Respirations even and unlabored. No increased work of breathing. Talking in full sentences Abdomen/GI: Soft, non-tender. No distention Skin: Warm, dry with normal turgor. Normal color. MS/ Extremity: Pulses equal, no cyanosis. Neurovascular intact. Full, normal range of motion. Neuro: Awake and alert, GCS 15, oriented to person, place, time, and situation. Moves all extremities. Normal gait. 15:24 Back: pain, that is moderate, of the right mid back, ROM is painful, normal spinal alignment noted. Vital Signs: 12:49 BP 142 / 93; Pulse 98; Resp 20 S; Temp 97.9(O); Pulse Ox 98% on R/A; Weight 83.91 kg kc6 (R); Height 5 ft. 3 in. (R); Pain 10/10; 13:53 BP 134 / 101; Pulse 84; Resp 19 S; Pulse Ox 100% on R/A; kc6 14:59 BP 128 / 84; Pulse 95; Resp 18 S; Pulse Ox 94% on R/A; kc6 16:13 BP 120 / 94; Pulse 77; Resp 17 S; Pulse Ox 99% on R/A; kc6 12:49 Body Mass Index 32.77 (83.91 kg, 160.02 cm) kc6 12:49 Pain Scale: Adult kc6 MDM: 12:50 Patient medically screened. kb 15:24 Data reviewed: vital signs, nurses notes. kb 15:34 Differential diagnosis: sprain, Ureterolithiasis strain, kidney stone, uti, kb pyelonephritis, herniated disc. Historians other than the Patient: EMS: [facility]. Counseling: I had a detailed discussion with the patient and/or guardian regarding: the historical points, exam findings, and any diagnostic results supporting the discharge/admit diagnosis, lab results, radiology results, the need for outpatient follow up, a family practitioner, to return to the emergency department if symptoms worsen or persist or if there are any questions or concerns that arise at home. 01/31 12:53 Order name: CBC with Diff; Complete Time: 14:34 kb 01/31 12:53 Order name: Basic Metabolic Panel; Complete Time: 14:34 kb 01/31 12:53 Order name: Test, Urine; Complete Time: 14:34 kb 01/31 12:53 Order name: Urinalysis w/ reflexes; Complete Time: 14:34 kb 01/31 12:53 Order name: CT Stone Protocol; Complete Time: 14:56 kb 01/31 12:53 Order name: Chest Single View XRAY; Complete Time: 14:56 kb 01/31 15:07 Order name: US Abdomen Limited; Complete Time: 15:42 kb 01/31 12:53 Order name: IV Start; Complete Time: 13:08 kb Administered Medications: 13:08 Drug: NS 0.9% IV 1000 ml Route: IV; Rate: 1000 ml; Site: right antecubital; kc6 16:49 Follow up: IV Status: Completed infusion; IV Intake: 700ml kc6 13:08 Drug: Ketorolac IVP 15 mg Route: IVP; Site: right antecubital; kc6 14:56 Follow up: Response: No adverse reaction; Pain is decreased kc6 13:08 Drug: morphine IVP or IV 4 mg Route: IVP; Infused Over: 4 mins; Site: right antecubital;kc6 14:56 Follow up: Response: No adverse reaction; Pain is decreased; RASS: Alert and Calm (0) kc6 13:08 Drug: Ondansetron IVP 4 mg Route: IVP; Site: right antecubital; kc6 14:57 Follow up: Response: No adverse reaction kc6 16:12 Drug: [place] PO 10 mg-325 mg 1 tabs Route: PO; kc6 16:35 Follow up: Response: No adverse reaction; Pain is decreased; RASS: Alert and Calm (0) kc6 Disposition: 17:23 Co-signature as Attending Physician, Kyle Flores MD I agree with the assessment and kdr plan of care. Disposition Summary: 01/31/23 15:35 Discharge Ordered Location: Home kb Condition: Stable kb Diagnosis - Back pain kb Followup: kb - With: Emergency Department - When: As needed - Reason: Worsening of condition Followup: kb - With: Private Physician - When: 2 - 3 days - Reason: Recheck today's complaints, Continuance of care, Re-evaluation by your physician Discharge Instructions: - Discharge Summary Sheet kb - Acute Back Pain, Adult kb Forms: - Medication Reconciliation Form kb - Thank You Letter kb - Antibiotic Education kb - Prescription Opioid Use kb - Patient Portal Instructions Prescriptions: - Diclofenac Sodium 75 mg Oral tablet,delayed release (DR/EC) - take 1 tablet by ORAL route 2 times per day As needed; 30 tablet; Refills: 0, kb Product Selection Permitted - orphenadrine citrate 100 mg Oral Tablet Sustained Release - take 1 tablet by ORAL route 2 times per day As needed; 20 tablet; Refills: 0, kb Product Selection Permitted Signatures: Dispatcher [employer] Elaine Hall, WARDROBE ATTENDANT-C WARDROBE ATTENDANT-Ckb Kyle Flores MD MD kdr Campbell, Kaitlyn RN RN kc6
--- NOTE | 2023-01-31 15:41 | RAD REPORT ---
EXAM DESCRIPTION: US - Abdomen Exam Limited - 01/31/2023 3:24 pm CLINICAL HISTORY: Abdominal pain. COMPARISON: None. FINDINGS: The gallbladder wall is not thickened. A gallstone is not seen. The biliary tree is normal caliber. IMPRESSION: Unremarkable gallbladder ultrasound.
[2023-01-31] MEDS ORDERED: HYDROCODONE/APAP 10/325 TAB ONE (16:17)
[2023-01-31 17:19] VITALS: TEMP 97.9
[2023-01-31 17:22] VITALS: BP 120/94; O2SAT 99
== END 2023-01-31 16:50 | disposition home or self-care (01) ==
LOC: ER 12:48
DX: M54.9 Dorsalgia, unspecified (principal)
CPT/HCPCS: 96361; 85025; 81001; 80048; 36415; 81025; 76377; 74176; 71045; 76705; 96375; 96374; 99284; J2405; J7030